=== PATIENT | male | born 1945 | race Caucasian/White ===

== ENCOUNTER → 2020-04-21 10:00 | Outpatient (BNVA) | payer MEDICARE, SELFPAY | PROVIDERS: Family Provider Internal Medicine; PCP Internal Medicine; Visit Provider Urology | DX: R97.20 Elevated prostate specific antigen [PSA] (principal); R31.0 Gross hematuria; N40.1 Benign prostatic hyperplasia with lower urinary tract symptoms | CPT/HCPCS: 81001; 84153 ==

== ENCOUNTER → 2020-11-02 08:36 | Outpatient (BNVA) | payer MEDICARE, SELFPAY | PROVIDERS: Family Provider Internal Medicine; PCP Internal Medicine; Visit Provider Urology | DX: N40.1 Benign prostatic hyperplasia with lower urinary tract symptoms (principal); R97.20 Elevated prostate specific antigen [PSA]; N41.1 Chronic prostatitis | CPT/HCPCS: 81003; 84153 ==

== ENCOUNTER 2022-10-26 11:26 | Outpatient (CLI) | payer MEDICARE, SELFPAY | END 2022-10-26 11:27 | disposition home or self-care (01) | PROVIDERS: PCP Internal Medicine; Visit Provider Urology | DX: R97.20 Elevated prostate specific antigen [PSA] (principal) | CPT/HCPCS: 84153 ==

== ENCOUNTER → 2022-10-31 13:44 | Outpatient (BNVA) | payer MEDICARE, SELFPAY | PROVIDERS: PCP Internal Medicine; Visit Provider Internal Medicine Cardiovascular Disease | DX: I48.92 Unspecified atrial flutter (principal); I10 Essential (primary) hypertension; E78.2 Mixed hyperlipidemia; E03.9 Hypothyroidism, unspecified; Z87.891 Personal history of nicotine dependence | CPT/HCPCS: 99214; Q3014 ==

== ENCOUNTER → 2022-11-02 07:56 | Outpatient (BNVA) | payer MEDICARE, SELFPAY | PROVIDERS: PCP Internal Medicine; Visit Provider Urology | DX: R97.20 Elevated prostate specific antigen [PSA] (principal); N40.1 Benign prostatic hyperplasia with lower urinary tract symptoms; N41.1 Chronic prostatitis | CPT/HCPCS: 51798; 81003; 99213 ==

== ENCOUNTER → 2023-11-26 11:39 | Outpatient (BNVA) | payer MEDICARE, SELFPAY | PROVIDERS: PCP Internal Medicine; Visit Provider Internal Medicine Cardiovascular Disease | DX: I10 Essential (primary) hypertension (principal); I48.92 Unspecified atrial flutter; Z79.01 Long term (current) use of anticoagulants; E78.2 Mixed hyperlipidemia; Z87.891 Personal history of nicotine dependence | CPT/HCPCS: 99213 ==

== ENCOUNTER 2024-02-08 18:25 | Emergency (ER) | payer MEDICARE, SELFPAY ==
[2024-02-08] VITALS (10 sets, daily range): BP systolic 160–188; BP diastolic 91–108; PULSE 88–107; RESP 12–19; TEMP 36.7; O2SAT 95–99
--- NOTE | 2024-02-08 18:34 | ECG_ITS ---
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 Measurements Intervals [place] Rate: 102 P: 44 MT: 180 QRS: 37 QRSD: 81 T: 47 QT: 324 QTc: 423 Interpretive Statements SINUS TACHYCARDIA POSSIBLE LEFT ATRIAL ENLARGEMENT [-0.1mV P-WAVE IN V1/V2] MINIMAL ST DEPRESSION [0.025+ mV ST DEPRESSION] ABNORMAL RHYTHM ECG INTERPRETATION BASED ON A DEFAULT AGE OF 40 YEARS Compared to ECG 07/24/2019 23:50:15 ST (T wave) deviation now present Sinus rhythm no longer present Electronically Signed On 02-09-2024 19:27:25 CDT by Janett Peñaloza M.D. [id number]
--- NOTE | 2024-02-08 18:58 | XRR_ITS ---
PROCEDURE INFORMATION: Exam: XR Chest Exam date and time: 02/08/2024 7:00 PM Age: 78 years old Clinical indication: Patient HX: Chest pain; Hypertension TECHNIQUE: Imaging protocol: Radiologic exam of the chest. Views: 1 view. COMPARISON: CR XR chest 1V [id number] 07/24/2019 10:53 PM FINDINGS: Lungs: No focal consolidation. Pleural spaces: No evidence of pneumothorax. No evidence of pleural effusion. Heart/Mediastinum: Cardiomediastinal silhouette is within normal limits. Bones/joints: No evidence of acute osseous abnormality. XR/XR chest 1V portable [id number] IMPRESSION: 1. No acute cardiopulmonary abnormality.
--- NOTE | 2024-02-08 19:10 | ED_ITS ---
HPI - Chest Pain 2 General: Chief Complaint: Chest Pain Stated Complaint: High BP Time Seen by Provider: 02/08/24 18:58 History of Present Illness: Patient presents to the ER with intermittent chest pain throughout the day. Patient said when he went to lean over and been back up he was reported he was dizzy. Patient says not felt right all day. He has a history of a flutter not had an episode in 2 years. He does take Eliquis and metoprolol. Upon arrival patient's blood pressure was 183/99 with a heart rate of 102. Patient is not actively having chest pain at this time. Review of Systems 2 General: Reports: 10 or more systems reviewed and unremarkable except in HPI and below PFSH ED 2 PFSH: Medical History Anticoagulation adequate with anticoagulant therapy Prostatitis BPH loc w urin obs/LUTS Elevated PSA Gross hematuria Hyperlipidemia BPH (benign prostatic hyperplasia) Basal cell carcinoma Atrial flutter Hypothyroidism Calculus of kidney Hypertension Surgical History H/O: knee surgery LEFT History of cholecystectomy H/O parathyroidectomy Family History Father , AT AGE 79 FH: CABG (coronary artery bypass surgery) Brother FH: CABG (coronary artery bypass surgery) Mother , AT AGE 96 No problems noted. Other CAD (coronary artery disease) Valvular heart disease Social History Smoking and tobacco/nicotine status: former use of tobacco/nicotine Alcohol intake: never Substance/Drug Use: never Marital status: Current occupational status: retired Physical Exam 2 Const: COMMON NORMALS: no acute distress, average body habitus, patient oriented x3, no limitations, healthy appearing, alert and well nourished HENMT: COMMON NORMALS: normocephalic, atraumatic, hearing grossly normal bilaterally, external ears normal, Normal external nose present, moist oral mucous membranes and oropharynx normal HEAD & SCALP: normocephalic and atraumatic NOSE: Normal external nose present EXTERNAL EAR: Yes external ears normal Neck/C-Spine: COMMON NORMALS: no JVD Chest: COMMONS NORMALS: normal inspection of the chest and normal palpation of entire chest wall Resp: COMMON NORMALS: normal respiratory effort, No retractions, No use of accessory muscles and clear to auscultation bilaterally AUSCULTATION: clear to auscultation bilaterally Cardio: COMMON NORMALS: no JVD, regular rate, regular rhythm, S1 normal heart sound present, S2 normal heart sound present, No gallops present (Cardio), No clicks present (Cardio), No murmurs present (Cardio) and No rub (Cardio) R ATE: regular rate RHYTHM: regular rhythm HEART SOUNDS: S1 normal heart sound present and S2 normal heart sound present GI: COMMON NORMALS: Normal to inspection, nondistended, normoactive bowel sounds present, Soft to palpation, non-tender, No hepatosplenomegaly present and no masses PALPATION: Yes Soft to palpation and Yes No hepatosplenomegaly present : COMMON NORMALS: Yes no CVA tenderness BLADDER/KIDNEY EXAM: Yes no CVA tenderness Back/Pelvis: COMMON NORMALS: no CVA tenderness Neuro: COMMON NORMALS: patient oriented x3 SENSORIUM/ORIENTATION: Yes alert Course 2 Vital Signs: Vital signs: Vital Signs Temperature 98.0 F 02/08/24 18:30 Pulse Rate 107 H 02/08/24 23:00 Respiratory Rate 14 02/08/24 23:00 Blood Pressure 181/94 02/08/24 23:00 Pulse Oximetry 98 02/08/24 23:00 Oxygen Delivery Me thod Room Air 02/08/24 18:30 MDM - Chest Pain Medical Decision Making Patient had a cardiac workup in normal chest pain type fashion with serial lab work, serial EKGs, serial enzymes and chest x-ray, all of which was essentially benign. Initial troponin was 15, 2-hour troponin was 17 for delta of approximately 2. Patient was given 10 mg of hydralazine for elevated blood pressure which improved slightly. Patient be discharged home to follow-up with his PCP for further evaluation and treatment. Lab Data 02/08/24 19:08 02/08/24 19:08 Radiology Impressions Chest X-Ray 02/08/24 18:58 IMPRESSION: 1. No acute cardiopulmonary abnormality. Laboratory Results WBC 7.46 10^3/uL (3.29-11.43) 02/08/24 19:08 RBC 5.43 10^6/uL (3.85-5.65) 02/08/24 19:08 Hgb 17.00 g/dL (11.27-16.99) H 02/08/24 19:08 Hct 48.6 % (37-53) 02/08/24 19:08 MCV 89.5 fl (82-101) 02/08/24 19:08 MCH 31.3 pg (27-33) 02/08/24 19:08 MCHC 35.0 g/dL (30-55) 02/08/24 19:08 RDW 12.0 % (12.1-15.1) L 02/08/24 19:08 Plt Count 194 10^3/cmm (157-399) 02/08/24 19:08 MPV 10.5 fL (7.4-10.4) H 02/08/24 19:08 Neut % (Auto) 69.7 % 02/08/24 19:08 Lymph % (Auto) 23.1 % 02/08/24 19:08 [place] % (Auto) 3.9 % 02/08/24 19:08 Eos % (Auto) 1.9 % 02/08/24 19:08 Baso % (Auto) 1.1 % 02/08/24 19:08 Neut # (Auto) 5.21 10^3/uL (1.8-7.7) 02/08/24 19:08 Lymph # (Auto) 1.7 10^3/uL (0.8-4.8) 02/08/24 19:08 [place] # (Auto) 0.3 10^3/uL (0.2-0.9) 02/08/24 19:08 Eos # (Auto) 0.1 10^3/uL (0.0-0.8) 02/08/24 19:08 Baso # (Auto) 0.1 10^3/uL (0.0-0.1) 02/08/24 19:08 Nucleated RBC % (auto) 0 % 02/08/24 19:08 Nucleated RBCs # 0.0 /100WBC 02/08/24 19:08 Sodium 139 mmol/L (136-145) 02/08/24 19:08 Potassium 3.8 mmol/L (3.5-5.1) 02/08/24 19:08 Chloride 103 mmol/L (98-107) 02/08/24 19:08 Carbon Dioxide 24 mmol/L (22-29) 02/08/24 19:08 Anion Gap 15.8 (5-19) 02/08/24 19:08 BUN 19 mg/dL (8-23) 02/08/24 19:08 Creatinine 1.2 mg/dL (0.7-1.2) 02/08/24 19:08 GFR Calculation Not Reportable 02/08/24 19:08 Glucose 179 mg/dL (65-115) H 02/08/24 19:08 Calculated Osmolality 295 mOsm/kg (285-295) 02/08/24 19:08 Calcium 8.7 mg/dL (8.5-10.5) 02/08/24 19:08 Total Bilirubin 0.6 mg/dL (0.15-1.2) 02/08/24 19:08 AST 16 U/L (0-40) 02/08/24 19:08 ALT 14 U/L (0-41) 02/08/24 19:08 Alkaline Phosphatase 94 U/L (40-130) 02/08/24 19:08 Troponin T Baseline 15 ng/L (0-15) 02/08/24 19:08 Troponin T 120 Minute 17.09 ng/L (0-15) H 02/08/24 21:08 Delta Troponin T 2.09 ABS# (0-10) 02/08/24 21:08 Total Protein 6.8 g/dL (6.6-8.7) 02/08/24 19:08 Albumin 4.6 g/dL (3.5-5.2) 02/08/24 19:08 Globulin 2.2 g/dL (1.3-4.6) 02/08/24 19:08 All radiology interpretation(s) finalized by discharge Discharge Plan Discharge Patient Disposition: Home Clinical Impression: Chest pain Hypertension Qualifiers: Hypertension type: essential hypertension Qualified Code(s): I10 - Essential (primary) hypertension Condition: Stable Prescriptions: No Action lisinopril 20 mg tablet 20 mg PO QDAY mirtazapine 15 mg tablet 15 mg PO QDAY pravastatin 20 mg tablet 20 mg PO QDAY levothyroxine [Synthroid] 50 mcg tablet 50 mcg PO QDAY tamsulosin 0.4 mg capsule See Rx Instructions .ROUTE .COMPLEX Qty: 90 3RF Dose Instruction: TAKE 1 CAPSULE BY MOUTH EVERY DAY Rx Instructions: TAKE 1 CAPSULE BY MOUTH EVERY DAY Eliquis 5 mg tablet 5 mg PO BID Qty: 180 3RF Discharge Orders: Discharge ED (Routine); Ordered 02/08/24 Ordered By: Oliver Hayes Referrals: Lauryn Sheriff MD [Primary Care Provider] - 1 week Patient Instructions: Chest Pain (ED), Hypertension (ED) Activity Restrictions/Additional Instructions: Your chest pain workup included chest x-ray, labs, EKGs all come back benign for acute cardiac causes of chest pain. It is felt that your pain is noncardiac in nature. Please follow-up with your family practice physician for further evaluation testing as needed. 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
[2024-02-08 19:19] LABS: Basophils # 0.1 10^3/uL (0.0-0.1); Basophils % 1.1 %; Eosinophils # 0.1 10^3/uL (0.0-0.8); Eosinophils % 1.9 %; Hematocrit 48.6 % (37-53); Lymphocytes # 1.7 10^3/uL (0.8-4.8); Lymphocytes % 23.1 %; Mean Corpuscular Hemoglobin 31.3 pg (27-33); Mean Corpuscular Volume 89.5 fl (82-101); Mean Platelet Volume 10.5 fL (7.4-10.4); Monocytes # 0.3 10^3/uL (0.2-0.9); Monocytes % 3.9 %; Neutrophils # 5.21 10^3/uL (1.8-7.7); Neutrophils % 69.7 %; Nucleated Red Blood Cells % 0 %; Platelet Count 194 10^3/cmm (157-399); Red Blood Count 5.43 10^6/uL (3.85-5.65); White Blood Count 7.46 10^3/uL (3.29-11.43)
[2024-02-08 19:40] LABS: Troponin(5th) Baseline 15 ng/L (0-15)
[2024-02-08 19:42] LABS: Alanine Aminotransferase 14 U/L (0-41); Albumin Level 4.6 g/dL (3.5-5.2); Alkaline Phosphatase 94 U/L (40-130); Anion Gap 15.8 (5-19); Aspartate Amino Transferase 16 U/L (0-40); Blood Urea Nitrogen 19 mg/dL (8-23); Calcium 8.7 mg/dL (8.5-10.5); Carbon Dioxide 24 mmol/L (22-29); Chloride 103 mmol/L (98-107); Creatinine Clr Calc Pharmacy 46.1397; Globulin 2.2 g/dL (1.3-4.6); Glucose 179 mg/dL (65-115); Osmolality Calculated 295 mOsm/kg (285-295); Potassium 3.8 mmol/L (3.5-5.1); Sodium 139 mmol/L (136-145); Total Bilirubin 0.6 mg/dL (0.15-1.2); Total Protein 6.8 g/dL (6.6-8.7)
--- NOTE | 2024-02-08 20:58 | ECG_ITS ---
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 Measurements Intervals [place] Rate: 91 P: 40 PA: 165 QRS: 40 QRSD: 86 T: 40 QT: 332 QTc: 410 Interpretive Statements SINUS RHYTHM Compared to ECG 02/08/2024 18:34:21 Sinus tachycardia no longer present ST (T wave) deviation no longer present Electronically Signed On 02-09-2024 19:57:54 CDT by Janett Peñaloza M.D. [id number]
[2024-02-08] MEDS: hyDRALAzine 20 mg/mL INJ 1 mL 10 MG IVP (22:12)
[2024-02-08 22:20] LABS: Troponin 5 2HR 17.09 ng/L (0-15); Troponin 5 2HR Delta 2.09 ABS# (0-10)
[2024-02-09 00:02] VITALS: BP 165/88; PULSE 103; RESP 18; O2SAT 99
== END 2024-02-09 00:04 | disposition home or self-care (01) ==
PROVIDERS: Emergency Provider Emergency Medicine; PCP Internal Medicine
DX: R07.9 Chest pain, unspecified (principal); I10 Essential (primary) hypertension; Z79.01 Long term (current) use of anticoagulants; Z87.891 Personal history of nicotine dependence; E78.5 Hyperlipidemia, unspecified
CPT/HCPCS: 36415; 71045; 80053; 84484; 85025; 93005; 96374; 99285; J0360

== ENCOUNTER 2024-02-11 18:23 | Emergency (ER) | payer MEDICARE, SELFPAY ==
[2024-02-11] VITALS (9 sets, daily range): BP systolic 145–206; BP diastolic 78–103; PULSE 88–106; RESP 14–18; TEMP 36.8; O2SAT 96–99
--- NOTE | 2024-02-11 18:45 | W.ED.GENADLT ---
HPI - General Adult General: Chief complaint: General Medical Stated complaint: High BP Time Seen by Provider: 02/11/24 18:40 History of Present Illness: 78-year-old male presents emergency department with complaints of increased blood pressure. He states he was seen in the emergency department 3 days ago for the same complaint. Patient states he normally takes lisinopril and his blood pressure has been well-controlled. He states that he does have atrial fibrillation and takes apixaban for his irregular heart as well as Synthroid for his hypothyroidism. Patient states that he is not having difficulty with his vision or chest pain or shortness of breath. He states that he has just felt a little strange and off today . Associated symptoms: Deny headache(s) Review of Systems General: Reports: 10 or more systems reviewed and unremarkable except in HPI and below Neuro: Reports: dizziness; Denies: headache(s), numbness in extremities, weakness in extremities, difficulty walking or Slurred speech present PFSH ED PFSH: Medical History Anticoagulation adequate with anticoagulant therapy Prostatitis BPH loc w urin obs/LUTS Elevated PSA Gross hematuria Hyperlipidemia BPH (benign prostatic hyperplasia) Basal cell carcinoma Atrial flutter Hypothyroidism Calculus of kidney Hypertension Surgical History H/O: knee surgery LEFT History of cholecystectomy H/O parathyroidectomy Family History Father , AT AGE 79 FH: CABG (coronary artery bypass surgery) Brother FH: CABG (coronary artery bypass surgery) Mother , AT AGE 96 No problems noted. Other CAD (coronary artery disease) Valvular heart disease Social History Smoking and tobacco/nicotine status: former use of tobacco/nicotine Alcohol intake: never Substance/Drug Use: never Marital status: Current occupational status: retired Physical Exam Narrative: EXAM NARRATIVE: Constitutional: the patient appears well nourished and with normal development. Vital signs reviewed as documented. HENMT: Normocephalic, atraumatic. External ears normal appearance without drainage. Nose without drainage, normal appearance. Mucus membranes moist. Neck is supple, No jugular venous distension, trachea is midline, no appreciable carotid bruits. No lymphadenopathy. No meningeal signs. Flexion, extension and lateral rotation is without pain. Eyes: Pupils are equal, round, reactive to light and accommodation. No scleral icterus. Extra-ocular movement are intact. Thorax is symmetrical and with equal rise and fall with respirations. Resp: Lungs are clear to auscultation. No wheezes, rales, crackles or ronchi at present. Cardio: Regular rate and rhythm. Positive S1, S2. No appreciable murmurs, rubs or gallops. GI: Abdominal exam reveals normal bowel sounds to all quadrants. No organomegaly. No obvious palpable masses noted. No hepatomegally appreciated. Soft, non-tender to palpation. Extremity: Extremities are non-edematous and both femoral and pedal pulses are 2+ and equal bilaterally. Moves all extremities well, sensation in all extremities. Neuro: Alert and oriented x4, person, place, time and situation. Cranial nerves II through XII are grossly intact, there is no focal neurological deficits that I can appreciate at present. Sensation intact to all extremities. 2-point discrimination intact. Light touch intact to all extremities. Motor strength in the upper and lower extremities are equal and bilateral 5/5. Psych: Cooperative, calm, normal thought process, appropriate judgment. Skin: No lesions, rashes. No gross abnormalities noted. Back: Symmetrical, no obvious deformity, No CVA tenderness Course Vital Signs: Vital signs: Vital Signs Temperature 98.2 F 02/11/24 18:38 Pulse Rate 90 02/11/24 20:57 Respiratory Rate 16 02/11/24 20:57 Blood Pressure 168/78 02/11/24 20:57 Pulse Oximetry 96 02/11/24 20:57 Oxygen Delivery Me thod Room Air 02/11/24 19:54 MDM - General Adult Medical Decision Making Physical exam completed document I did obtain a CBC and CMP as well as cardiac enzymes I did provide the patient clonidine and hydralazine and his blood pressure improved significantly. The patient states he has taken metoprolol in the past but has not taken that for many years because he was advised to take it intermittently if he felt his heart rate going fast. After reevaluation the patient's blood pressure has significantly improved. I had an extensive discussion with the patient regarding supportive care treatment and will provide him discharge medications and recommended follow-up with his PCP. Patient did ambulate from the emergency department without any difficulty. Differential Diagnosis Uncontrolled hypertension, electrolyte abnormality, Medical Records I reviewed the patient's medical records. Lab Data I reviewed the patient's lab results. 02/11/24 18:50 02/11/24 18:50 Laboratory Results WBC 7.07 10^3/uL (3.29-11.43) 02/11/24 18:50 RBC 5.58 10^6/uL (3.85-5.65) 02/11/24 18:50 Hgb 17.60 g/dL (11.27-16.99) H 02/11/24 18:50 Hct 49.7 % (37-53) 02/11/24 18:50 MCV 89.1 fl (82-101) 02/11/24 18:50 MCH 31.5 pg (27-33) 02/11/24 18:50 MCHC 35.4 g/dL (30-55) 02/11/24 18:50 RDW 11.9 % (12.1-15.1) L 02/11/24 18:50 Plt Count 215 10^3/cmm (157-399) 02/11/24 18:50 MPV 10.4 fL (7.4-10.4) 02/11/24 18:50 Neut % (Auto) 69.7 % 02/11/24 18:50 Lymph % (Auto) 22.2 % 02/11/24 18:50 [place] % (Auto) 5.9 % 02/11/24 18:50 Eos % (Auto) 1.1 % 02/11/24 18:50 Baso % (Auto) 0.8 % 02/11/24 18:50 Neut # (Auto) 4.92 10^3/uL (1.8-7.7) 02/11/24 18:50 Lymph # (Auto) 1.6 10^3/uL (0.8-4.8) 02/11/24 18:50 [place] # (Auto) 0.4 10^3/uL (0.2-0.9) 02/11/24 18:50 Eos # (Auto) 0.1 10^3/uL (0.0-0.8) 02/11/24 18:50 Baso # (Auto) 0.1 10^3/uL (0.0-0.1) 02/11/24 18:50 Nucleated RBC % (auto) 0 % 02/11/24 18:50 Nucleated RBCs # 0.0 /100WBC 02/11/24 18:50 Sodium 139 mmol/L (136-145) 02/11/24 18:50 Potassium 4.0 mmol/L (3.5-5.1) 02/11/24 18:50 Chloride 104 mmol/L (98-107) 02/11/24 18:50 Carbon Dioxide 25 mmol/L (22-29) 02/11/24 18:50 Anion Gap 14.0 (5-19) 02/11/24 18:50 BUN 17 mg/dL (8-23) 02/11/24 18:50 Creatinine 1.3 mg/dL (0.7-1.2) H 02/11/24 18:50 GFR Calculation Not Reportable 02/11/24 18:50 Glucose 142 mg/dL (65-115) H 02/11/24 18:50 Calculated Osmolality 292 mOsm/kg (285-295) 02/11/24 18:50 Calcium 8.8 mg/dL (8.5-10.5) 02/11/24 18:50 Total Bilirubin 0.8 mg/dL (0.15-1.2) 02/11/24 18:50 AST 17 U/L (0-40) 02/11/24 18:50 ALT 14 U/L (0-41) 02/11/24 18:50 Alkaline Phosphatase 92 U/L (40-130) 02/11/24 18:50 Total Protein 7.3 g/dL (6.6-8.7) 02/11/24 18:50 Albumin 4.6 g/dL (3.5-5.2) 02/11/24 18:50 Globulin 2.7 g/dL (1.3-4.6) 02/11/24 18:50 No radiology studies performed this visit EKG Data EKG 1: Interpretation: Twelve-lead EKG obtained at 1845 and reviewed at 184 demonstrates sinus rhythm, [place] interval 166, QRS duration 81, QT 360 QTc 401 at present there is no ST elevation or depression to demonstrate acute ischemia or infarction. Discharge Plan Discharge Patient Disposition: Home Clinical Impression: Hypertension, uncontrolled Condition: Stable Prescriptions: New metoprolol tartrate 25 mg tablet 12.5 mg PO BID Qty: 30 1RF No Action lisinopril 20 mg tablet 20 mg PO QDAY mirtazapine 15 mg tablet 15 mg PO QDAY pravastatin 20 mg tablet 20 mg PO QDAY levothyroxine [Synthroid] 50 mcg tablet 50 mcg PO QDAY tamsulosin 0.4 mg capsule See Rx Instructions .ROUTE .COMPLEX Qty: 90 3RF Dose Instruction: TAKE 1 CAPSULE BY MOUTH EVERY DAY Rx Instructions: TAKE 1 CAPSULE BY MOUTH EVERY DAY Eliquis 5 mg tablet 5 mg PO BID Qty: 180 3RF Discharge Orders: Discharge ED (Routine); Ordered 02/11/24 Ordered By: Darrin Patterson Referrals: Lauryn Sheriff MD [Primary Care Provider] - Discharge Diet: Low Salt Discharge Activity: Resume usual activity Patient Instructions: Opioid Safety, Pain Management Activity Restrictions/Additional Instructions: Activity Restrictions/Additional Instructions: Thank you for choosing [facility] for your healthcare needs today. Please realize that you were seen in the Emergency Department and that we are providing you with an emergency medical screening exam and this may not be a complete and all inclusive of all the testing and or medical work-up that you may need to determine your ailment or severity of your illness. It is very important that you follow-up as instructed with your Primary care provider or Specialist for additional evaluation and to discuss your medical treatment plan. You may return to the Emergency Department should you have concerns or if your condition changes or worsens in any way. 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
[2024-02-11 19:06] LABS: Basophils # 0.1 10^3/uL (0.0-0.1); Basophils % 0.8 %; Eosinophils # 0.1 10^3/uL (0.0-0.8); Eosinophils % 1.1 %; Hematocrit 49.7 % (37-53); Lymphocytes # 1.6 10^3/uL (0.8-4.8); Lymphocytes % 22.2 %; Mean Corpuscular HGB Conc 35.4 g/dL (30-55); Mean Corpuscular Hemoglobin 31.5 pg (27-33); Mean Corpuscular Volume 89.1 fl (82-101); Mean Platelet Volume 10.4 fL (7.4-10.4); Monocytes # 0.4 10^3/uL (0.2-0.9); Monocytes % 5.9 %; Neutrophils # 4.92 10^3/uL (1.8-7.7); Neutrophils % 69.7 %; Nucleated Red Blood Cells % 0 %; Platelet Count 215 10^3/cmm (157-399); Red Blood Count 5.58 10^6/uL (3.85-5.65); Red Cell Distribution Width 11.9 % (12.1-15.1); White Blood Count 7.07 10^3/uL (3.29-11.43)
[2024-02-11] MEDS: cloNIDine 0.1 mg Tablet 0.100000000000000006 MG PO (19:08)
[2024-02-11] MEDS: hyDRALAzine 20 mg/mL INJ 1 mL IVP (19:08)
[2024-02-11 19:15] LABS: Alanine Aminotransferase 14 U/L (0-41); Albumin Level 4.6 g/dL (3.5-5.2); Alkaline Phosphatase 92 U/L (40-130); Aspartate Amino Transferase 17 U/L (0-40); Blood Urea Nitrogen 17 mg/dL (8-23); Calcium 8.8 mg/dL (8.5-10.5); Carbon Dioxide 25 mmol/L (22-29); Chloride 104 mmol/L (98-107); Creatinine Clr Calc Pharmacy 42.5905; Globulin 2.7 g/dL (1.3-4.6); Glucose 142 mg/dL (65-115); Osmolality Calculated 292 mOsm/kg (285-295); Sodium 139 mmol/L (136-145); Total Bilirubin 0.8 mg/dL (0.15-1.2); Total Protein 7.3 g/dL (6.6-8.7)
--- NOTE | 2024-02-11 19:32 | ECG_ITS ---
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 Measurements Intervals [place] Rate: 104 P: 46 [place]: 167 QRS: 50 QRSD: 80 T: 49 QT: 332 QTc: 438 Interpretive Statements SINUS TACHYCARDIA NONSPECIFIC ST & T-WAVE ABNORMALITY ABNORMAL RHYTHM ECG Compared to ECG 02/08/2024 21:15:41 T-wave abnormality now present Sinus rhythm no longer present Electronically Signed On 02-11-2024 22:52:04 CDT by Janett Peñaloza M.D. [id number]
== END 2024-02-11 20:57 | disposition home or self-care (01) ==
PROVIDERS: Emergency Provider Internal Medicine; PCP Internal Medicine
DX: I10 Essential (primary) hypertension (principal); Z79.01 Long term (current) use of anticoagulants; Z87.891 Personal history of nicotine dependence; E78.5 Hyperlipidemia, unspecified
CPT/HCPCS: 80053; 85025; 93005; 96374; 99284; J0360

== ENCOUNTER 2024-04-28 17:09 | Observation (INO) | payer MEDICARE, SELFPAY ==
[2024-04-28] VITALS (10 sets, daily range): BP systolic 111–216; BP diastolic 62–112; PULSE 65–93; RESP 14–22; TEMP 36.6–37; O2SAT 94–99; BMI 21.2
[2024-04-28 17:57] LABS: Basophils # 0.1 10^3/uL (0.0-0.1); Eosinophils # 0.1 10^3/uL (0.0-0.8); Eosinophils % 1.1 %; Hematocrit 53.4 % (37-53); Lymphocytes # 1.4 10^3/uL (0.8-4.8); Lymphocytes % 19.7 %; Mean Corpuscular HGB Conc 34.6 g/dL (30-55); Mean Corpuscular Hemoglobin 30.5 pg (27-33); Mean Corpuscular Volume 88.1 fl (82-101); Mean Platelet Volume 10.9 fL (7.4-10.4); Monocytes # 0.5 10^3/uL (0.2-0.9); Monocytes % 6.3 %; Neutrophils # 5.14 10^3/uL (1.8-7.7); Neutrophils % 71.5 %; Nucleated Red Blood Cells % 0 %; Platelet Count 187 10^3/cmm (157-399); Red Blood Count 6.06 10^6/uL (3.85-5.65); Red Cell Distribution Width 12.2 % (12.1-15.1); White Blood Count 7.19 10^3/uL (3.29-11.43)
[2024-04-28 18:06] LABS: Alanine Aminotransferase 10 U/L (0-41); Albumin Level 4.6 g/dL (3.5-5.2); Alkaline Phosphatase 89 U/L (40-130); Aspartate Amino Transferase 20 U/L (0-40); Blood Urea Nitrogen 16 mg/dL (8-23); Calcium 8.9 mg/dL (8.5-10.5); Carbon Dioxide 24 mmol/L (22-29); Chloride 101 mmol/L (98-107); Creatinine Clr Calc Pharmacy 46.1397; Globulin 2.9 g/dL (1.3-4.6); Glucose 107 mg/dL (65-115); Osmolality Calculated 286 mOsm/kg (285-295); Sodium 137 mmol/L (136-145); Total Protein 7.5 g/dL (6.6-8.7)
[2024-04-28 18:47] LABS: Anion Gap 16.1 (5-19); Potassium 4.1 mmol/L (3.5-5.1)
--- NOTE | 2024-04-28 19:36 | ECG_ITS ---
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 Measurements Intervals [place] Rate: 80 P: 43 PA: 168 QRS: 55 QRSD: 80 T: 39 QT: 367 QTc: 423 Interpretive Statements SINUS RHYTHM WITH OCCASIONAL ECTOPIC PREMATURE COMPLEXES POSSIBLE LEFT ATRIAL ENLARGEMENT [-0.1mV P-WAVE IN V1/V2] MODERATE ST DEPRESSION [0.05+ mV ST DEPRESSION] Compared to ECG 02/11/2024 19:32:40 ST (T wave) deviation now present Sinus tachycardia no longer present T-wave abnormality no longer present Electronically Signed On 04-28-2024 23:21:31 CDT by Kartik Rm M.D. [id number]
--- NOTE | 2024-04-28 19:51 | ED_ITS ---
HPI - General Adult 2 General: Chief complaint: General Medical Stated complaint: High blood pressure Time Seen by Provider: 04/28/24 19:25 History of Present Illness: Patient presents to the ER with worsening blood pressure. Patient says he his blood pressure started to get high back about 2 months ago he was seen in the ER a couple times then followed up with family practice physician and was eventually started on lisinopril and metoprolol and has been on these for about 6 weeks. They usually control his blood pressure significantly better however today he noticed he was up significantly and he started getting a bit lightheaded. So he came to the ER to be evaluated. Patient has no other complaints at this time. Review of Systems 2 General: Reports: 10 or more systems reviewed and unremarkable except in HPI and below PFSH ED 2 PFSH: Medical History Anticoagulation adequate with anticoagulant therapy Prostatitis BPH loc w urin obs/LUTS Elevated PSA Gross hematuria Hyperlipidemia BPH (benign prostatic hyperplasia) Basal cell carcinoma Atrial flutter Hypothyroidism Calculus of kidney Hypertension Surgical History H/O: knee surgery LEFT History of cholecystectomy H/O parathyroidectomy Family History Father , AT AGE 79 FH: CABG (coronary artery bypass surgery) Brother FH: CABG (coronary artery bypass surgery) Mother , AT AGE 96 No problems noted. Other CAD (coronary artery disease) Valvular heart disease Social History Smoking and tobacco/nicotine status: former use of tobacco/nicotine Alcohol intake: never Substance/Drug Use: never Marital status: Current occupational status: retired Physical Exam 2 Const: COMMON NORMALS: no acute distress, average body habitus, patient oriented x3, no limitations, healthy appearing, alert and well nourished HENMT: COMMON NORMALS: normocephalic, atraumatic, hearing grossly normal bilaterally, external ears normal, Normal external nose present and moist oral mucous membranes HEAD & SCALP: normocephalic and atraumatic NOSE: Normal external nose present EXTERNAL EAR: Yes external ears normal Eye: COMMON NORMALS: Equal, round and reactive pupils present, EOMs intact bilaterally, conjunctivae normal and no scleral icterus CONJUNCTIVA: Yes conjunctivae normal PUPIL: Yes Equal, round and reactive pupils present Neck/C-Spine: COMMON NORMALS: no JVD Chest: COMMONS NORMALS: normal inspection of the chest and normal palpation of entire chest wall Resp: COMMON NORMALS: normal respiratory effort, No retractions, No use of accessory muscles and clear to auscultation bilaterally AUSCULTATION: clear to auscultation bilaterally Cardio: COMMON NORMALS: no JVD, regular rate, regular rhythm, S1 normal heart sound present, S2 normal heart sound present, No clicks present (Cardio) and No rub (Cardio); negative for No murmurs present (Cardio) (Thoracic systolic ejection murmur) RATE: regular rate RHYTHM: regular rhythm HEART SOUNDS: S1 normal heart sound present and S2 normal heart sound present GI: COMMON NORMALS: Normal to inspection, nondistended, normoactive bowel sounds present, Soft to palpation, non-tender, No hepatosplenomegaly present and no masses PALPATION: Yes Soft to palpation and Yes No hepatosplenomegaly present Neuro: COMMON NORMALS: patient oriented x3 SENSORIUM/ORIENTATION: Yes alert Course 2 Vital Signs: Vital signs: Vital Signs Temperature 97.8 F 04/28/24 20:00 Pulse Rate 79 04/29/24 03:00 Respiratory Rate 12 04/29/24 03:00 Blood Pressure 133/76 04/29/24 03:00 Pulse Oximetry 98 04/29/24 03:00 Oxygen Delivery Me thod Room Air 04/29/24 00:00 MDM - General Adult Medical Decision Making Patient presented to the ER with blood pressure of 216/100 with no other complaints other than mild dizziness, patient was given 20 mg of hydralazine IM and 0.2 mg clonidine p.o. will get lab work for troponin approximately 19, second troponin approximately 29.5, third troponin approximately 46 for delta of approximately 26. EKG showed some mild ST depression in in a few leads as well as inverted T waves, Dr. Peñaloza was consulted who said the patient could be having a type II RI and he would suggest admitting the patient for stress test. Dr. Hughes was consulted who agreed to place patient in observation CSU. Differential Diagnosis Hypertension, uncontrolled, dizziness, vertigo Medical Records I reviewed the patient's medical records. Lab Data I reviewed the patient's lab results. 04/28/24 17:42 04/28/24 17:42 Laboratory Results WBC 7.19 10^3/uL (3.29-11.43) 04/28/24 17:42 RBC 6.06 10^6/uL (3.85-5.65) H 04/28/24 17:42 Hgb 18.50 g/dL (11.27-16.99) H 04/28/24 17:42 Hct 53.4 % (37-53) H 04/28/24 17:42 MCV 88.1 fl (82-101) 04/28/24 17:42 MCH 30.5 pg (27-33) 04/28/24 17:42 MCHC 34.6 g/dL (30-55) 04/28/24 17:42 RDW 12.2 % (12.1-15.1) 04/28/24 17:42 Plt Count 187 10^3/cmm (157-399) 04/28/24 17:42 MPV 10.9 fL (7.4-10.4) H 04/28/24 17:42 Neut % (Auto) 71.5 % 04/28/24 17:42 Lymph % (Auto) 19.7 % 04/28/24 17:42 [place] % (Auto) 6.3 % 04/28/24 17:42 Eos % (Auto) 1.1 % 04/28/24 17:42 Baso % (Auto) 1.0 % 04/28/24 17:42 Neut # (Auto) 5.14 10^3/uL (1.8-7.7) 04/28/24 17:42 Lymph # (Auto) 1.4 10^3/uL (0.8-4.8) 04/28/24 17:42 [place] # (Auto) 0.5 10^3/uL (0.2-0.9) 04/28/24 17:42 Eos # (Auto) 0.1 10^3/uL (0.0-0.8) 04/28/24 17:42 Baso # (Auto) 0.1 10^3/uL (0.0-0.1) 04/28/24 17:42 Nucleated RBC % (auto) 0 % 04/28/24 17:42 Nucleated RBCs # 0.0 /100WBC 04/28/24 17:42 Sodium 137 mmol/L (136-145) 04/28/24 17:42 Potassium 4.1 mmol/L (3.5-5.1) 04/28/24 17:42 Chloride 101 mmol/L (98-107) 04/28/24 17:42 Carbon Dioxide 24 mmol/L (22-29) 04/28/24 17:42 Anion Gap 16.1 (5-19) 04/28/24 17:42 BUN 16 mg/dL (8-23) 04/28/24 17:42 Creatinine 1.2 mg/dL (0.7-1.2) 04/28/24 17:42 GFR Calculation Not Reportable 04/28/24 17:42 Glucose 107 mg/dL (65-115) 04/28/24 17:42 Calculated Osmolality 286 mOsm/kg (285-295) 04/28/24 17:42 Calcium 8.9 mg/dL (8.5-10.5) 04/28/24 17:42 Total Bilirubin 1.0 mg/dL (0.15-1.2) 04/28/24 17:42 AST 20 U/L (0-40) 04/28/24 17:42 ALT 10 U/L (0-41) 04/28/24 17:42 Alkaline Phosphatase 89 U/L (40-130) 04/28/24 17:42 Troponin T Baseline 19 ng/L (0-15) H 04/28/24 20:26 Troponin T 120 Minute 29.58 ng/L (0-15) H 04/28/24 22:39 Delta Troponin T 10.58 ABS# (0-10) H* 04/28/24 22:39 Troponin T Hi Sens 6Hr 45.78 ng/L (0-15) H 04/29/24 02:20 Troponin T Hi Sens 6Hr Delta 26.78 ng/L (0-12) H* 04/29/24 02:20 Total Protein 7.5 g/dL (6.6-8.7) 04/28/24 17:42 Albumin 4.6 g/dL (3.5-5.2) 04/28/24 17:42 Globulin 2.9 g/dL (1.3-4.6) 04/28/24 17:42 TSH 4.03 uIU/mL (0.27-4.20) 04/28/24 17:42 Urine Color Yellow (Yellow) 04/28/24 19:26 Urine Appearance Clear (CLEAR) 04/28/24 19:26 Urine pH 5 (5-7) 04/28/24 19:26 Ur Specific [place] 1.015 (1.005-1.030) 04/28/24 19:26 Urine Protein Neg (Negative) 04/28/24 19:26 Urine Glucose (UA) Norm (Normal) 04/28/24 19:26 Urine Ketones Negative (Negative) 04/28/24 19:26 Urine Blood 3+ (Negative) H 04/28/24 19:26 Urine Nitrate Negative (Negative) 04/28/24 19:26 Urine Bilirubin Neg (Negative) 04/28/24 19:26 Urine Urobilinogen Norm mg/dL (Negative) 04/28/24 19:26 Ur Leukocyte Esterase Negative (Negative) 04/28/24 19:26 Urine RBC 0-4 /hpf (0-2) H 04/28/24 19:26 Urine WBC 0-4 /hpf (0-5) H 04/28/24 19:26 Ur Squamous Epith Cells 0-4 /hpf (0-5) H 04/28/24 19:26 Amorphous Sediment Not Reportable 04/28/24 19:26 Urine Bacteria Trace /hpf (NONE) 04/28/24 19:26 All radiology interpretation(s) finalized by discharge EKG Data EKG 1: I personally reviewed and interpreted this EKG as follows: EKG interpretation date: 04/28/24 EKG interpretation time: 20:03 Interpretation: Ventricular rate 80 bpm, NM interval 168, QRS duration 80, QTc of 402, sinus rhythm occasional PVC EKG 2: I personally reviewed and interpreted this EKG as follows: EKG interpretation date: 04/28/24 EKG interpretation time: 22:55 Interpretation: Ventricular rate 87 bpm, NM interval 167, QRS duration 81, QTc of 438, sinus rhythm with frequent PVCs Discharge Plan Discharge Patient Disposition: Placed in Observation Clinical Impression: Hypertension, uncontrolled, Non-ST elevation RI (NSTEMI) Coding Level of Care Code ED Behavioral Modification Assistant for Woo Bonner
[2024-04-28] MEDS: hyDRALAzine 20 mg/mL INJ 1 mL IM (20:11)
[2024-04-28 20:14] LABS: Thyroid Stimulating Hormone 4.03 uIU/mL (0.27-4.20)
[2024-04-28 20:53] LABS: Add Urine Microscopic? YES; Bilirubin Urine Neg (Negative); Blood Urine 3+ (Negative); Glucose Urine UA Norm (Normal); Ketones Urine Negative (Negative); Leukocyte Esterase Urine Negative (Negative); Nitrate Urine Negative (Negative); Protein Urine Neg (Negative); Specific Gravity, Urine 1.015 (1.005-1.030); Urine Appearance Clear (CLEAR); Urine Color Yellow (Yellow); Urobilinogen Urine Norm (Negative); pH Urine 5 (5-7)
[2024-04-28 20:54] LABS: Add Urine Culture? No; Bacteria Urine TRACE /hpf; RBC Urine 0-4 /hpf (0-2); Squamous Epithelial Cell Urine 0-4 /hpf (0-5); WBC Urine 0-4 /hpf (0-5)
[2024-04-28 21:04] LABS: Troponin(5th) Baseline 19 ng/L (0-15)
[2024-04-28] MEDS: cloNIDine 0.1 mg Tablet 0.2 MG PO (21:31)
--- NOTE | 2024-04-28 22:55 | ECG_ITS ---
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 Measurements Intervals [place] Rate: 87 P: 34 MA: 167 QRS: 51 QRSD: 81 T: 45 QT: 394 QTc: 475 Interpretive Statements SINUS RHYTHM WITH FREQUENT ECTOPIC PREMATURE COMPLEXES POSSIBLE LEFT ATRIAL ENLARGEMENT [-0.1mV P-WAVE IN V1/V2] ABNORMAL RHYTHM ECG Compared to ECG 04/28/2024 20:03:55 ST (T wave) deviation no longer present Electronically Signed On 04-29-2024 21:34:19 CDT by Janett Peñaloza M.D. [id number] f
[2024-04-28 23:04] LABS: Troponin 5 2HR 29.58 ng/L (0-15)
[2024-04-28 23:14] LABS: Troponin 5 2HR Delta 10.58 ABS# (0-10)
[2024-04-29] VITALS (23 sets, daily range): BP systolic 86–164; BP diastolic 51–94; PULSE 58–84; RESP 12–29; O2SAT 95–98; BMI 21.6
[2024-04-29 02:43] LABS: Troponin 5 6HR 45.78 ng/L (0-15)
[2024-04-29 02:59] LABS: Troponin 5 6HR Delta 26.78 ng/L (0-12)
--- NOTE | 2024-04-29 03:00 | ECG_ITS ---
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 Measurements Intervals [place] Rate: 66 P: 46 SC: 170 QRS: 49 QRSD: 80 T: 31 QT: 426 QTc: 447 Interpretive Statements SINUS RHYTHM POSSIBLE LEFT ATRIAL ENLARGEMENT [-0.1mV P-WAVE IN V1/V2] MODERATE ST DEPRESSION [0.05+ mV ST DEPRESSION] Compared to ECG 04/28/2024 22:55:50 ST (T wave) deviation now present Electronically Signed On 04-29-2024 21:35:24 CDT by Janett Peñaloza M.D. [id number]
--- NOTE | 2024-04-29 04:08 | ECG_ITS ---
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 Interpretive Statements NAME OF STUDY: LEXISCAN SESTAMIBI STRESS TEST INDICATION: Elevated Troponin, PROCEDURE: At the baseline, the EKG revealed normal sinus rhythm with a normal ST Ts.. The baseline heart was 67 bpm with a blood pressue of 157/100 mm of Hg Lexiscan was infused over a period of 20 seconds. A total of 0.4 milligrams of Lexiscan was infused. The stress phase was continued for a total of 5 minutes. Heart rate at the end of the stress phase was 84 bpm with a blood pressure 146/81 mm of Hg. The EKG at the peak infusion revealed no significant changes. Sestamibi was injected 20 seconds after the Lexiscan infusion. Heart rate at the end of the recovery phase was 82 bpm with a blood pressure of 159/83 mm of Hg. CONCLUSION: 1. No significant EKG changes with the LexiScan infusion 2. No LexiScan induced chest pain or cardiac arrhythmia 3. Normal blood pressure and heart rate response 4. Sestamibi/sestamibi perfusion scan pending; see separate report. Electronically Signed On 05-01-2024 23:03:45 CDT by Janett Peñaloza M.D. [id number]
--- NOTE | 2024-04-29 04:08 | USCV_ITS ---
Frantz Bearden Age: 78 Gender: M : 1945 Exam Date: 04/29/2024 05:51 Ordering Phys: Makayla Hughes MD Technologist: BASILIO Exam Location: [facility] [place] Indication: ELEVATED TROPONIN BP: 105 / 66 HR: 75 Rhythm: Sinus Technical Quality: Adequate MEASUREMENTS (Male / Female) Normal Values 2D ECHO LV Diastolic Diameter PLAX 3.8 cm 4.2 - 5.9 / 3.9 - 5.3 cm IVS Diastolic Thickness 0.8 cm 0.6 - 1.0 / 0.6 - 0.9 cm IVS Systolic Thickness 1.6 cm LVPW Diastolic Thickness 1.5 cm 0.6 - 1.0 / 0.6 - 0.9 cm LVPW Systolic Thickness 2.0 cm LVOT Diameter 2.0 cm LV Ejection Fraction 2D Teich 67.8 % LV Ejection Fraction MOD 4C 62.8 % LV Ejection Fraction MOD 2C 66.3 % LV Ejection Fraction 2C AL 66.8 % LA Diameter 3.0 cm RA Systolic Volume 4C AL 23.6 ml RA Systolic Volume 4C MOD 22.6 ml LA Sys Volume AL 24.3 cm cubed LA Sys Volume Index AL 13.9 cm cubed/m squared Aorta at Sinotubular Diameter 2.8 cm M-MODE LA Ao Ratio MM 0.7 AV Cusp Separation MM 0.9 cm DOPPLER AV Peak Velocity 181.7 cm/s LVOT Peak Velocity 89.0 cm/s AV Area Cont Eq vti 1.6 cm squared AV Area Cont Eq pk 1.5 cm squared MV Peak Velocity 103.0 cm/s MV Area PHT 2.9 cm squared Mitral E to A Ratio 0.8 TR Peak Velocity 267.5 cm/s TR Peak Gradient 28.6 mmHg TR Mean Velocity 219.0 cm/s TR Mean Gradient 22.1 mmHg TR Velocity Time Integral 97.3 cm TV Peak E Velocity 45.0 cm/s Right Atrial Pressure 3.0 mmHg Pulmonary Artery Systolic Pressu 31.6 mmHg PV Peak Velocity 111.0 cm/s RV Ejection Time 0.4 s FINDINGS Left Ventricle Mild concentric left trickle hypertrophy with normal ejection fraction of 64%.no regional wall motion abnormalities. Right Ventricle Normal right ventricular size and systolic function. Right Atrium Mildly increased right atrial size. Left Atrium Mildly increased left atrial size. Mitral Valve Mild-moderate mitral valve regurgitation. Aortic Valve Thickened aortic valve. Aortic valve stenosis. Tricuspid Valve Moderate tricuspid valve regurgitation. Pulmonic Valve No gross abnormalities noted Pericardium No pericardial effusion. Aorta Normal aortic annulus size. IVC Inferior vena cava not visualized. CONCLUSIONS Mild concentric left trickle hypertrophy with normal ejection fraction of 64%.no regional wall motion abnormalities. Mild biatrial enlargement Mild-moderate mitral valve regurgitation. Features of aortic valve sclerosis. Moderate tricuspid valve regurgitation. There is no pericardial effusion. There are no intracardiac masses. Compared to the study from 08/29/2019, the biatrial enlargement appears to be new Dr Janett Peñaloza MD [facility] (Electronically Signed) Final Date: 29 April 2024 14:07 S
--- NOTE | 2024-04-29 04:08 | P.HP_ITS ---
Providers/Chief Complaint 2 Admitting Physician: Makayla Hughes MD Primary Care Provider: Lauryn Sheriff MD Chief Complaint: High blood pressure History of Present Illness Frantz Bearden is a 78 year old male With past medical history of prostatitis, hyperlipidemia, atrial flutter, hypothyroidism, BPH presented to the hospital today for elevated blood pressure. He status has been rising over the last 2 months and he is also seen his primary care doctor and was recently started on lisinopril and metoprolol. He has been taking his medications for about 6 weeks. Somehow his pressure is controlled and sometimes does not. He has noticed today that pressure has been significantly higher and he was starting to get lightheaded therefore he came to the hospital for evaluation. Denies any other symptoms. Has not had any chest pain, shortness of abdominal pain nausea vomiting diarrhea. He states he has been on the [place] x 2 in the past. He is very active. He is on lisinopril 20 twice daily at home. ER course blood pressure initially 216/100 systolic with mild dizziness. He was given 20 mg of hydralazine IV and 0.2 of clonidine. Initial troponin obtained. 6-hour troponin also resulted with a delta of total 26. EKG did show mild ST depressions initially with some inverted T waves. ER physician discussed case with Dr. Peñaloza who has recommended to admit patient for a stress test at this time. Medications/Allergies Home Medications Medication Instructions Recorded Confirmed Last Taken Type levothyroxine 50 mcg tablet 50 mcg PO QDAY 10/30/19 11/26/23 Unknown History (Synthroid) lisinopril 20 mg tablet 20 mg PO QDAY 10/30/19 11/26/23 Unknown History mirtazapine 15 mg tablet 15 mg PO QDAY 10/30/19 11/26/23 Unknown History pravastatin 20 mg tablet 20 mg PO QDAY 10/30/19 11/26/23 Unknown History tamsulosin 0.4 mg capsule See Rx Instructions .Route 09/14/22 11/26/23 Unknown Rx .COMPLEX #90 caps apixaban 5 mg tablet (Eliquis) 5 mg PO BID #180 tabs 07/10/23 11/26/23 Unknown Rx metoprolol tartrate 25 mg tablet 12.5 mg (1/2 x 25 mg) PO BID #30 02/11/24 Unknown Rx tabs Allergies Allergy/AdvReac Type Severity Reaction Status Date / Time azithromycin Allergy Unknown Verified 02/08/24 18:38 erythromycin base Allergy Unknown Verified 02/08/24 18:38 PFSH Acute 2 PFSH: Medical History Anticoagulation adequate with anticoagulant therapy Prostatitis BPH loc w urin obs/LUTS Elevated PSA Gross hematuria Hyperlipidemia BPH (benign prostatic hyperplasia) Basal cell carcinoma Atrial flutter Hypothyroidism Calculus of kidney Hypertension Surgical History H/O: knee surgery LEFT History of cholecystectomy H/O parathyroidectomy Family History Father , AT AGE 79 FH: CABG (coronary artery bypass surgery) Brother FH: CABG (coronary artery bypass surgery) Mother , AT AGE 96 No problems noted. Other CAD (coronary artery disease) Valvular heart disease Social History Smoking and tobacco/nicotine status: former use of tobacco/nicotine Alcohol intake: never Substance/Drug Use: never Marital status: Current occupational status: retired Vitals/I&O/Wt Last Vital Signs Temp 97.8 F 04/28/24 20:00 Pulse 61 04/29/24 04:03 Resp 16 04/29/24 04:03 BP 141/83 04/29/24 04:03 Pulse Ox 96 04/29/24 04:03 O2 Del Method Room Air 04/29/24 03:49 04/28/24 04/28/24 04/29/24 14:59 22:59 06:59 Output Total 300 / 300 Balance -300 / -300 Weight last 48 hrs Weight 63.503 kg Physical Exam 2 Narrative: General: Alert oriented x3, patient seen laying in bed appearing comfortable. HEENT: Normocephalic, atraumatic, EOMI, breathing room air Cardio: Regular rate rhythm, normal S1-S2 Respiratory: Clear to auscultation bilaterally GI: Abdomen soft, nontender, nondistended, bowel sounds + Extremities: No edema bilateral lower extremities Data 04/28/24 17:42 04/28/24 17:42 A&P Assessment and plan (1) Hypertension: Qualifiers: Hypertension type: essential hypertension Qualified Code(s): I10 - Essential (primary) hypertension (2) Hypertension, uncontrolled: (3) Non-ST elevation [place] (NSTEMI): (4) Atrial flutter: (5) Encounter for monitoring flecainide therapy: (6) Hyperlipidemia: Qualifiers: Hyperlipidemia type: mixed hyperlipidemia Qualified Code(s): E78.2 - Mixed hyperlipidemia (7) Hypothyroidism: Qualifiers: Hypothyroidism type: unspecified Qualified Code(s): E03.9 - Hypothyroidism, unspecified Plan #Hypertensive urgency #Elevated troponin, NSTEMI? Possibly demand ischemia #Hypertension #On anticoagulation? ? Patient on metoprolol, lisinopril at home. Given 0.2 clonidine in ER. Blood pressure improved. May need to uptitrate blood pressure medications at discharge. ? Delta troponin at 6 hours 29. No chest pain, shortness of breath or any other symptoms at this time. ? Cardiology consulted in ER. Recommend a stress test at this time. ? Admit patient to cardiac stepdown and monitor. Low threshold to repeat EKG and troponin if chest pain occurs. ? Continue patient's Eliquis, levothyroxine, lisinopril, metoprolol tartrate, pravastatin at this time. Will need to confirm patient's home medications. ? I believe patient's mild elevated troponin is secondary to hypertensive urgency with systolic blood pressure of 216 on arrival. He has not had any kind of chest pain. I will add baby aspirin at this time. ? On Eliquis but will suffice as DVT prophylaxis ? Placed on telemetry and monitor ? Check echo Full code Attestations 2 Medical Necessity Statement*: Expect discharge less than 48 hours stay. Diagnoses Essential hypertension I10 Hypertension type: essential hypertension Hypertension, uncontrolled I10 Non-ST elevation [place] (NSTEMI) I21.4 Atrial flutter I48.92 Encounter for monitoring flecainide therapy Z51.81; Z79.899 Mixed hyperlipidemia E78.2 Hyperlipidemia type: mixed hyperlipidemia Hypothyroidism, unspecified type E03.9 Hypothyroidism type: unspecified
--- NOTE | 2024-04-29 04:09 | NMCV_ITS ---
NM nilam perf SPECT r/s* [id number] Frantz Bearden Age: 78 Gender: M : 1945 Exam Date: 04/29/2024 04:09 Ordering Phys: Makayla Hughes MD Technologist: KANIKA Wilkerson Exam Location: [facility] [place] Indications: HTN STRESS TEST Please see separate stress test report in [facility] for full findings IMAGE PROTOCOL Rest/Stress 1 Lexiscan Day Radiopharmaceutical Dose (mCi) Administration Site Administered by Rest: Tc-99m 10.9 IV KANIKA Wilkerson Sestamibi Stress:Tc-99m 32.7 IV KANIKA Wilkerson Sestamibi Rest: 29-Apr-2024 60 Discovery 630 Stress: 29-Apr-2024 30 Discovery 630 0.4mg Lexiscan. Images obtained in supine and prone position. SPECT RESULTS Technical Quality: Good Raw Data Analysis: Normal Image Corrections: No attenuation or motion correction applied Summed Stress Score: 0 Summed Rest Score: 0 Summed Difference Score: 0 PERFUSION FINDINGS Uniform myocardial tracer uptake with no significant Perfusion and abnormalities FUNCTIONAL RESULTS (calculated via Gated SPECT) Stress Image LV EF (%): 94 Stress EDV (mL):54 TID: 1.19 Stress ESV (mL):3 FUNCTIONAL FINDINGS: Segmental wall motion analysis revealing no gross wall motion abnormalities IMPRESSIONS 1. Uniform myocardial tracer uptake with no significant perfusion abnormalities 2. Normal LV ejection fraction of 94%. 3. LV wall motion analysis revealing no gross wall motion abnormalities. 4. Normal LV volume Low probability for coronary ischemia, based on the above findings No similar previous studies are available for comparison Dr Janett Peñaloza MD FAC (Electronically Signed) Final Date: 29 April 2024 12:30 S
[2024-04-29 04:46] LABS: Chol HDL Ratio 3.06 mg/dL (1.0-5.00); Cholesterol 159 mg/dL (0-200); HDL Cholesterol 52 mg/dL (60-100); LDL Cholesterol Calculated 91 mg/dL (50-129); LDL HDL Ratio 1.75 RATIO (0.00-3.22); Triglycerides 79 mg/dL (0-150)
[2024-04-29 05:16] LABS: Estmated Average Glucose 103; Hemoglobin A1C 5.2 % (4.0-6.0)
[2024-04-29] MEDS: sodium chloride 0.9% 1,000 ML 75 ML IV (05:59)
[2024-04-29] MEDS: levothyroxine 50 mcg Tablet PO (06:00)
[2024-04-29] MEDS: lisinopril 20 mg Tablet PO ×2 (06:02→08:29)
--- NOTE | 2024-04-29 08:26 | PC.NURSE ---
per film laboratory technician, pt can have morning meds.
[2024-04-29] MEDS: metoprolol tartrate 25 mg Tablet 12.5 MG PO (08:30)
[2024-04-29] MEDS: tamsulosin 0.4 mg Capsule PO (08:30)
[2024-04-29] MEDS: apixaban 5 mg Tablet PO (08:30)
--- NOTE | 2024-04-29 09:22 | PC.NURSE ---
pt went to stress test @ [id number]
--- NOTE | 2024-04-29 09:58 | P.CONIM_ITS ---
Providers/Reason For Consult 2 Consulting Physician/Specialty*: Jordi Peñaloza MD/cardiology Reason for Consult*: Patient with chest pain and elevated troponin T Requesting Physician: Dr. Oneal Attending Physician: Isaias Oneal MD Primary Care Provider: Lauryn Sheriff MD History of Present Illness History of Present Illness Frantz Bearden is a 78 year old male with a history of hypertension, dyslipidemia, atrial flutter/fibrillation, on long-term oral oral anticoagulation he is admitted to hospital through the emergency room, where he presented with complaints of uncontrolled blood pressure. He was found to have elevated troponin T. Cardiology consult is requested for further cardiac evaluation recommendations. This patient has no previous history for any coronary disease or myocardial infarction. He has a longstanding history of hypertension. Recently the blood pressure medications were changed by his primary care provider. He checks his blood pressure at home once in a while. Yesterday he was checking his blood pressure in the evening and the pressure was found to be elevated. He kept checking the pressure and every time it was found to be keep going higher and higher. So when the pressure got up into the 200 range he decided to come to the hospital. He did not have any chest pain or chest tightness. No shortness of breath. He did not have any fever, chills or cough. He mainly had a slight headache. But no other associated symptoms. He has a history of atrial flutter/fibrillation and is on long-term oral anticoagulation. Also is known to have dyslipidemia and has been taking the statin. No history for any bleeding ulcers. No abdominal pain or dysuria. No other specific complaints. Review of Systems 2 Narrative: CONSTITUTIONAL: No fever or chills. EYES: No blurring of vision or other visual disturbances lately. ENT: No hoarseness of voice, auditory disturbances or sore throat. CARDIOVASCULAR: As mentioned above. RESPIRATORY: No significant cough. GASTROINTESTINAL: No hematemesis or melena. GENITOURINARY: No dysuria or hematuria. INTEGUMENTARY: No skin rashes or history of skin cancer. NEURO: No transient ischemic attacks or amaurosis. PSYCHIATRIC: No history of psychosis or major depression. HEMATOLOGIC: On long-term oral anticoagulation ENDOCRINE: No history of polyuria or polydipsia. MUSCULOSKELETAL: No recent joint pain or swelling. ALLERGY/IMMUNOLOGY: As mentioned above. Medications/Allergies Home Medications Medication Instructions Recorded Confirmed Last Taken Type levothyroxine 50 mcg tablet 50 mcg PO QAM 10/30/19 04/29/24 04/28/24 History (Synthroid) lisinopril 20 mg tablet 20 mg PO BID 10/30/19 04/29/24 04/28/24 History mirtazapine 15 mg tablet 15 mg PO QPM 10/30/19 04/29/24 04/27/24 History pravastatin 20 mg tablet 20 mg PO QPM 10/30/19 04/29/24 04/27/24 History tamsulosin 0.4 mg capsule See Rx Instructions .Route 09/14/22 04/29/24 04/27/24 Rx .COMPLEX #90 caps apixaban 5 mg tablet (Eliquis) 5 mg PO BID #180 tabs 07/10/23 04/29/24 04/28/24 Rx metoprolol tartrate 25 mg tablet 25 mg PO BID 04/29/24 04/29/24 04/28/24 History Allergies Allergy/AdvReac Type Severity Reaction Status Date / Time azithromycin Allergy Unknown Verified 02/08/24 18:38 erythromycin base Allergy Unknown Verified 02/08/24 18:38 Current Medications Generic Name Dose Route Start Last Admin Trade Name Freq PRN Reason Stop Dose Admin Apixaban 5 mg 04/29/24 09:00 04/29/24 08:30 Apixaban 5 Mg Tablet PO 5 mg BID MARCIE Administration Sodium Chloride 1,000 mls @ 75 mls/hr 04/29/24 04:15 04/29/24 05:59 Sodium Chloride 0.9% IV 75 mls/hr .[id number] MARCIE Administration Levothyroxine Sodium 50 mcg 04/29/24 06:30 04/29/24 06:00 Levothyroxine 50 Mcg Tablet PO 50 mcg 0630 MARCIE Administration Lisinopril 20 mg 04/29/24 04:15 04/29/24 08:29 Lisinopril 20 Mg Tablet PO 20 mg DAILY MARCIE Administration Metoprolol Tartrate 12.5 mg 04/29/24 09:00 04/29/24 08:30 Metoprolol Tartrate 25 Mg Tablet PO 12.5 mg BID MARCIE Administration Tamsulosin HCl 0.4 mg 04/29/24 09:00 04/29/24 08:30 Tamsulosin 0.4 Mg Capsule PO 0.4 mg DAILY MARCIE Administration PFSH Acute 2 PFSH: Medical History Anticoagulation adequate with anticoagulant therapy Prostatitis BPH loc w urin obs/LUTS Elevated PSA Gross hematuria Hyperlipidemia BPH (benign prostatic hyperplasia) Basal cell carcinoma Atrial flutter Hypothyroidism Calculus of kidney Hypertension Surgical History H/O: knee surgery LEFT History of cholecystectomy H/O parathyroidectomy Family History Father , AT AGE 79 FH: CABG (coronary artery bypass surgery) Brother FH: CABG (coronary artery bypass surgery) Mother , AT AGE 96 No problems noted. Other CAD (coronary artery disease) Valvular heart disease Social History Smoking and tobacco/nicotine status: former use of tobacco/nicotine Alcohol intake: never Substance/Drug Use: never Marital status: Current occupational status: retired Vitals/I&O/Wt Last Vital Signs Temp 97.8 F 04/28/24 20:00 Pulse 72 04/29/24 08:00 Resp 16 04/29/24 08:00 BP 164/94 04/29/24 08:00 Pulse Ox 97 04/29/24 08:00 O2 Del Method Room Air 04/29/24 08:00 04/28/24 04/29/24 04/29/24 22:59 06:59 14:59 Output Total 300 / 300 Balance -300 / -300 Weight last 48 hrs Weight 140 lb Physical Exam 2 Narrative: GENERAL: The patient is alert and oriented times three. Not in any acute distress. HEENT: No significant pallor, icterus or lymphadenopathy.Oral cavity: There are no mucous membrane lesions. NECK: Trachea appears to be central. No masses noted. No JVD or thyromegaly appreciated. RESPIRATORY: Chest is symmetrical. No intercostals muscle retraction or any accessory muscle activation. There is no chest wall tenderness. Breath sounds are heard bilaterally. No rales or rhonchi heard. No evidence of any consolidation. BREASTS: Deferred. HEART: The heart sounds are normal. No S3 or S4. Short systolic murmur the left sternal border. No diastolic murmurs. No pericardial rub ABDOMEN: No vessel pulsations or distention. No tenderness. No organomegaly appreciated. Bowel sounds are normally heard. : Deferred. RECTAL: Deferred. LYMPHATIC: No lymphadenopathy noted in the neck. EXTREMITIES: No edema or cyanosis. No clubbing. MUSCULOSKELETAL: No acute joint deformities or swelling SKIN: There are no significant rashes or ecchymosis NEUROPSYCHIATRIC: The patient is alert and oriented x3. Appears to be in a good mood. No tremors or rigidity noted. Data 04/28/24 17:42 04/28/24 17:42 Other Labs: Laboratory Last Values WBC 7.19 10^3/uL (3.29-11.43) 04/28/24 17:42 RBC 6.06 10^6/uL (3.85-5.65) H 04/28/24 17:42 Hgb 18.50 g/dL (11.27-16.99) H 04/28/24 17:42 Hct 53.4 % (37-53) H 04/28/24 17:42 MCV 88.1 fl (82-101) 04/28/24 17:42 MCH 30.5 pg (27-33) 04/28/24 17:42 MCHC 34.6 g/dL (30-55) 04/28/24 17:42 RDW 12.2 % (12.1-15.1) 04/28/24 17:42 Plt Count 187 10^3/cmm (157-399) 04/28/24 17:42 MPV 10.9 fL (7.4-10.4) H 04/28/24 17:42 Neut % (Auto) 71.5 % 04/28/24 17:42 Lymph % (Auto) 19.7 % 04/28/24 17:42 [place] % (Auto) 6.3 % 04/28/24 17:42 Eos % (Auto) 1.1 % 04/28/24 17:42 Baso % (Auto) 1.0 % 04/28/24 17:42 Neut # (Auto) 5.14 10^3/uL (1.8-7.7) 04/28/24 17:42 Lymph # (Auto) 1.4 10^3/uL (0.8-4.8) 04/28/24 17:42 [place] # (Auto) 0.5 10^3/uL (0.2-0.9) 04/28/24 17:42 Eos # (Auto) 0.1 10^3/uL (0.0-0.8) 04/28/24 17:42 Baso # (Auto) 0.1 10^3/uL (0.0-0.1) 04/28/24 17:42 Nucleated RBC % (auto) 0 % 04/28/24 17:42 Nucleated RBCs # 0.0 /100WBC 04/28/24 17:42 Sodium 137 mmol/L (136-145) 04/28/24 17:42 Potassium 4.1 mmol/L (3.5-5.1) 04/28/24 17:42 Chloride 101 mmol/L (98-107) 04/28/24 17:42 Carbon Dioxide 24 mmol/L (22-29) 04/28/24 17:42 Anion Gap 16.1 (5-19) 04/28/24 17:42 BUN 16 mg/dL (8-23) 04/28/24 17:42 Creatinine 1.2 mg/dL (0.7-1.2) 04/28/24 17:42 GFR Calculation Not Reportable 04/28/24 17:42 Glucose 107 mg/dL (65-115) 04/28/24 17:42 Estimat Average Glucose 103 04/28/24 17:42 Hemoglobin A1c 5.2 % (4.0-6.0) 04/28/24 17:42 Calculated Osmolality 286 mOsm/kg (285-295) 04/28/24 17:42 Calcium 8.9 mg/dL (8.5-10.5) 04/28/24 17:42 Total Bilirubin 1.0 mg/dL (0.15-1.2) 04/28/24 17:42 AST 20 U/L (0-40) 04/28/24 17:42 ALT 10 U/L (0-41) 04/28/24 17:42 Alkaline Phosphatase 89 U/L (40-130) 04/28/24 17:42 Troponin T Baseline 19 ng/L (0-15) H 04/28/24 20:26 Troponin T 120 Minute 29.58 ng/L (0-15) H 04/28/24 22:39 Delta Troponin T 10.58 ABS# (0-10) H* 04/28/24 22:39 Troponin T Hi Sens 6Hr 45.78 ng/L (0-15) H 04/29/24 02:20 Troponin T Hi Sens 6Hr Delta 26.78 ng/L (0-12) H* 04/29/24 02:20 Total Protein 7.5 g/dL (6.6-8.7) 04/28/24 17:42 Albumin 4.6 g/dL (3.5-5.2) 04/28/24 17:42 Globulin 2.9 g/dL (1.3-4.6) 04/28/24 17:42 Triglycerides 79 mg/dL (0-150) 04/29/24 02:20 Cholesterol 159 mg/dL (0-200) 04/29/24 02:20 LDL Cholesterol, Calc 91 mg/dL (50-129) 04/29/24 02:20 HDL Cholesterol 52 mg/dL (60-100) L 04/29/24 02:20 LDL/HDL Ratio 1.75 RATIO (0.00-3.22) 04/29/24 02:20 Cholesterol/HDL Ratio 3.06 mg/dL (1.0-5.00) 04/29/24 02:20 TSH 4.90 uIU/mL (0.27-4.20) H 04/29/24 02:20 Urine Color Yellow (Yellow) 04/28/24 19:26 Urine Appearance Clear (CLEAR) 04/28/24 19:26 Urine pH 5 (5-7) 04/28/24 19:26 Ur Specific [place] 1.015 (1.005-1.030) 04/28/24 19:26 Urine Protein Neg (Negative) 04/28/24 19:26 Urine Glucose (UA) Norm (Normal) 04/28/24 19:26 Urine Ketones Negative (Negative) 04/28/24 19:26 Urine Blood 3+ (Negative) H 04/28/24 19:26 Urine Nitrate Negative (Negative) 04/28/24 19:26 Urine Bilirubin Neg (Negative) 04/28/24 19:26 Urine Urobilinogen Norm mg/dL (Negative) 04/28/24 19:26 Ur Leukocyte Esterase Negative (Negative) 04/28/24 19:26 Urine RBC 0-4 /hpf (0-2) H 04/28/24 19:26 Urine WBC 0-4 /hpf (0-5) H 04/28/24 19:26 Ur Squamous Epith Cells 0-4 /hpf (0-5) H 04/28/24 19:26 Amorphous Sediment Not Reportable 04/28/24 19:26 Urine Bacteria Trace /hpf (NONE) 04/28/24 19:26 Other data: EKG from 04/29/2024 Normal sinus rhythm with some nonspecific ST changes. Possible left atrial enlargement. Otherwise unremarkable. Because of the baseline artifact, somewhat difficult to interpret Transthoracic echocardiogram 29 August 2019: Normal left ventricle size and systolic function with no regional wall motion abnormalities. Grade 1 diastolic dysfunction. Normal right ventricular size and systolic function. Mild tricuspid valve regurgitation. Myocardial perfusion imaging from today, 04/29/2024 1. Uniform myocardial tracer uptake with no significant perfusion abnormalities 2. Normal LV ejection fraction of 94%. 3. LV wall motion analysis revealing no gross wall motion abnormalities. 4. Normal LV volume Low probability for coronary ischemia, based on the above findings No similar previous studies are available for comparison A&P Assessment and plan (1) Elevated troponin: The elevated troponin T, most likely from type II myocardial infarction. The Myocardial perfusion imaging did not reveal any ischemia. No significant EKG changes. Patient is currently asymptomatic. (2) Hypertension: Patient blood pressure is currently elevated. For better control of blood pressure, I may go ahead and give him amlodipine 5 mg p.o. now and daily. His blood pressure needs to be closely monitored. Qualifiers: Hypertension type: essential hypertension Qualified Code(s): I10 - Essential (primary) hypertension (3) Atrial flutter: Currently the patient seems to be in sinus rhythm. May continue on the current medications. Qualifiers: Atrial flutter type: typical Qualified Code(s): I48.3 - Typical atrial flutter (4) Hyperlipidemia: Continue on the current medication. Qualifiers: Hyperlipidemia type: mixed hyperlipidemia Qualified Code(s): E78.2 - Mixed hyperlipidemia (5) Anticoagulation adequate with anticoagulant therapy: Patient is on Eliquis which may be continued. (6) Hypothyroidism: Clinically euthyroid. May continue on the current medications Qualifiers: Hypothyroidism type: unspecified Qualified Code(s): E03.9 - Hypothyroidism, unspecified Plan Patient had a Myocardial perfusion imaging today. The Perfusion scan revealed no evidence of any [place] ischemia. The implications of the Myocardial perfusion imaging results are discussed with the patient. In the absence of any objective evidence of ischemia and also any symptoms of coronary insufficiency, he may not require any further investigations at this point. He may continue on the current medications. Thank for the opportunity to eval this patient and make these recommendations. Consult Attestations 2 Medical Necessity Statement: Disposition as per the primary Coding Level of Care Code 48826 Diagnoses Elevated troponin R79.89 Essential hypertension I10 Hypertension type: essential hypertension Typical atrial flutter I48.3 Atrial flutter type: typical Mixed hyperlipidemia E78.2 Hyperlipidemia type: mixed hyperlipidemia Anticoagulation adequate with anticoagulant therapy Z79.01 Hypothyroidism, unspecified type E03.9 Hypothyroidism type: unspecified
[2024-04-29] MEDS: aspirin 81 mg EC Tablet PO (12:24)
[2024-04-29] MEDS: sodium chloride 0.9% 1,000 ML 50 ML IV (12:52)
--- NOTE | 2024-04-29 13:19 | PC.NURSE ---
admitted in to room 111-2 from er at 1145.report received.pt is alert and oriented x 4.denies pain at present.sr on monitor.bp 162/92.oriented to room environment.instructed to notify staff for any pain,sob,headache,numbness,or for any concerns at all.pt verb understanding of instructions
[2024-04-29] MEDS: amlodipine 5 mg Tablet PO (14:45)
--- NOTE | 2024-04-29 15:51 | PM.DCS ---
Discharge Providers Date of Admission: 04/29/24 03:32 Date of Discharge: April 29, 2024 Attending Provider at Admission: Makayla Hughes MD Attending Provider at Discharge: Isaias Oneal MD Primary Care Provider: Lauryn Sheriff MD Diagnoses at Discharge Discharge Diagnosis (1) Elevated troponin: Status: Acute (2) Hypertension: Status: Acute Qualifiers: Hypertension type: essential hypertension Qualified Code(s): I10 - Essential (primary) hypertension (3) Atrial flutter: Status: Acute Qualifiers: Atrial flutter type: typical Qualified Code(s): I48.3 - Typical atrial flutter (4) Hyperlipidemia: Status: Acute Qualifiers: Hyperlipidemia type: mixed hyperlipidemia Qualified Code(s): E78.2 - Mixed hyperlipidemia (5) Anticoagulation adequate with anticoagulant therapy: Status: Acute (6) Hypothyroidism: Status: Acute Qualifiers: Hypothyroidism type: unspecified Qualified Code(s): E03.9 - Hypothyroidism, unspecified Reason for Visit Reason for Visit: High blood pressure Hospital Course Hospital Course Frantz is an 78-year-old white male who presented to the emergency department with hypertension. He had had some recent problems with his blood pressure with escalation of blood pressure medications. In the emergency department he had a mildly abnormal EKG and troponin was obtained. A positive delta was noted. There was concern this might represent a non-ST elevation myocardial infarction. He was placed in observation in the hospital. Echocardiogram was performed which demonstrated a preserved EF, moderate mitral regurg, biatrial enlargement, moderate tricuspid regurg. A nuclear stress test was performed, which showed no reversible ischemia. As he had no chest discomfort, blood pressure was improved after adding amlodipine to his regimen, it was thought he could be discharged home. Discharge blood pressure 137/82, heart rate of 67. He will follow-up with his primary care provider 3 to 5 days and cardiology clinic in approximately 2 weeks. He was able ask questions and agreed with the plan. Physical Exam Narrative: General exam no distress Neck is supple Cardiovascular regular rate and rhythm with 2/6 systolic murmur heard at apex Lungs clear Abdomen soft Extremities no cyanosis clubbing edema Discharge Data Studies Completed and Pending Completed Studies During Hospitalization Category Date Time Status Sestamibi Stress Test Request Routine Exams 04/29/24 04:08 Draft NM nilam perf SPECT r/s* [id number] Routine Nuc Med 04/29/24 04:09 Completed CV. echo complete* [id number] Routine Ultrasound 04/29/24 04:08 Completed Pending at discharge Category Date Time Status Basic Metabolic Panel AM LABS Lab 04/30/24 04:00 Ordered Complete Blood Count w/Auto AM LABS Lab 04/30/24 04:00 Ordered Magnesium AM LABS Lab 04/30/24 04:00 Ordered Laboratory Results WBC 7.19 10^3/uL (3.29-11.43) 04/28/24 17:42 RBC 6.06 10^6/uL (3.85-5.65) H 04/28/24 17:42 Hgb 18.50 g/dL (11.27-16.99) H 04/28/24 17:42 Hct 53.4 % (37-53) H 04/28/24 17:42 MCV 88.1 fl (82-101) 04/28/24 17:42 MCH 30.5 pg (27-33) 04/28/24 17:42 MCHC 34.6 g/dL (30-55) 04/28/24 17:42 RDW 12.2 % (12.1-15.1) 04/28/24 17:42 Plt Count 187 10^3/cmm (157-399) 04/28/24 17:42 MPV 10.9 fL (7.4-10.4) H 04/28/24 17:42 Neut % (Auto) 71.5 % 04/28/24 17:42 Lymph % (Auto) 19.7 % 04/28/24 17:42 [place] % (Auto) 6.3 % 04/28/24 17:42 Eos % (Auto) 1.1 % 04/28/24 17:42 Baso % (Auto) 1.0 % 04/28/24 17:42 Neut # (Auto) 5.14 10^3/uL (1.8-7.7) 04/28/24 17:42 Lymph # (Auto) 1.4 10^3/uL (0.8-4.8) 04/28/24 17:42 [place] # (Auto) 0.5 10^3/uL (0.2-0.9) 04/28/24 17:42 Eos # (Auto) 0.1 10^3/uL (0.0-0.8) 04/28/24 17:42 Baso # (Auto) 0.1 10^3/uL (0.0-0.1) 04/28/24 17:42 Nucleated RBC % (auto) 0 % 04/28/24 17:42 Nucleated RBCs # 0.0 /100WBC 04/28/24 17:42 Sodium 137 mmol/L (136-145) 04/28/24 17:42 Potassium 4.1 mmol/L (3.5-5.1) 04/28/24 17:42 Chloride 101 mmol/L (98-107) 04/28/24 17:42 Carbon Dioxide 24 mmol/L (22-29) 04/28/24 17:42 Anion Gap 16.1 (5-19) 04/28/24 17:42 BUN 16 mg/dL (8-23) 04/28/24 17:42 Creatinine 1.2 mg/dL (0.7-1.2) 04/28/24 17:42 GFR Calculation Not Reportable 04/28/24 17:42 Glucose 107 mg/dL (65-115) 04/28/24 17:42 Estimat Average Glucose 103 04/28/24 17:42 Hemoglobin A1c 5.2 % (4.0-6.0) 04/28/24 17:42 Calculated Osmolality 286 mOsm/kg (285-295) 04/28/24 17:42 Calcium 8.9 mg/dL (8.5-10.5) 04/28/24 17:42 Total Bilirubin 1.0 mg/dL (0.15-1.2) 04/28/24 17:42 AST 20 U/L (0-40) 04/28/24 17:42 ALT 10 U/L (0-41) 04/28/24 17:42 Alkaline Phosphatase 89 U/L (40-130) 04/28/24 17:42 Troponin T Baseline 19 ng/L (0-15) H 04/28/24 20:26 Troponin T 120 Minute 29.58 ng/L (0-15) H 04/28/24 22:39 Delta Troponin T 10.58 ABS# (0-10) H* 04/28/24 22:39 Troponin T Hi Sens 6Hr 45.78 ng/L (0-15) H 04/29/24 02:20 Troponin T Hi Sens 6Hr Delta 26.78 ng/L (0-12) H* 04/29/24 02:20 Total Protein 7.5 g/dL (6.6-8.7) 04/28/24 17:42 Albumin 4.6 g/dL (3.5-5.2) 04/28/24 17:42 Globulin 2.9 g/dL (1.3-4.6) 04/28/24 17:42 Triglycerides 79 mg/dL (0-150) 04/29/24 02:20 Cholesterol 159 mg/dL (0-200) 04/29/24 02:20 LDL Cholesterol, Calc 91 mg/dL (50-129) 04/29/24 02:20 HDL Cholesterol 52 mg/dL (60-100) L 04/29/24 02:20 LDL/HDL Ratio 1.75 RATIO (0.00-3.22) 04/29/24 02:20 Cholesterol/HDL Ratio 3.06 mg/dL (1.0-5.00) 04/29/24 02:20 TSH 4.90 uIU/mL (0.27-4.20) H 04/29/24 02:20 Urine Color Yellow (Yellow) 04/28/24 19:26 Urine Appearance Clear (CLEAR) 04/28/24 19:26 Urine pH 5 (5-7) 04/28/24 19:26 Ur Specific [place] 1.015 (1.005-1.030) 04/28/24 19:26 Urine Protein Neg (Negative) 04/28/24 19:26 Urine Glucose (UA) Norm (Normal) 04/28/24 19:26 Urine Ketones Negative (Negative) 04/28/24 19:26 Urine Blood 3+ (Negative) H 04/28/24 19:26 Urine Nitrate Negative (Negative) 04/28/24 19:26 Urine Bilirubin Neg (Negative) 04/28/24 19:26 Urine Urobilinogen Norm mg/dL (Negative) 04/28/24 19:26 Ur Leukocyte Esterase Negative (Negative) 04/28/24 19:26 Urine RBC 0-4 /hpf (0-2) H 04/28/24 19:26 Urine WBC 0-4 /hpf (0-5) H 04/28/24 19:26 Ur Squamous Epith Cells 0-4 /hpf (0-5) H 04/28/24 19:26 Amorphous Sediment Not Reportable 04/28/24 19:26 Urine Bacteria Trace /hpf (NONE) 04/28/24 19:26 Vitals Last Vital Signs Temp 97.8 F 04/28/24 20:00 Pulse 67 04/29/24 14:56 Resp 20 H 04/29/24 12:55 BP 137/82 04/29/24 14:56 Pulse Ox 96 04/29/24 14:56 O2 Del Method Room Air 04/29/24 13:49 Discharge Plan Discharge Patient Disposition: Home Condition: Stable Prescriptions: New amlodipine 5 mg Tablet 5 mg PO DAILY Qty: 30 0RF Continued lisinopril 20 mg tablet 20 mg PO BID mirtazapine 15 mg tablet 15 mg PO QPM pravastatin 20 mg tablet 20 mg PO QPM levothyroxine [Synthroid] 50 mcg tablet 50 mcg PO QAM tamsulosin 0.4 mg capsule See Rx Instructions .ROUTE .COMPLEX Qty: 90 3RF Dose Instruction: TAKE 1 CAPSULE BY MOUTH EVERY DAY Rx Instructions: TAKE 1 CAPSULE BY MOUTH EVERY EVENING. Eliquis 5 mg tablet 5 mg PO BID Qty: 180 3RF metoprolol tartrate 25 mg tablet 25 mg PO BID Discharge Orders: Discharge Order (Routine); Ordered 04/29/24 Ordered By: Isaias Oneal Referrals: Lauryn Sheriff MD [Primary Care Provider] - 05/02/24 8:30 am Juani Slaughter FNP [Nurse Practitioner] - 05/21/24 1:30 pm (follow up uncontrolled HTN) Discharge Diet: Cardiac Discharge Activity: Increase activity as tolerated Patient Instructions: Amlodipine (By mouth), Chronic Hypertension (GEN), Hypertension (DC), Opioid Safety, Pain Management Activity Restrictions/Additional Instructions: Follow-up with primary care provider in 3 to 5 days, Juani Slaughter in 2 weeks. Return for any concerns Take all medicine as prescribed. Note the addition of Norvasc 5 mg daily. Discharge Attestations Time Spent in Discharge Care*: greater than 30 min Quality Metrics Clinical Quality Measures [ No reported AMI, CVA or VTE this stay] Coding Level of Care Code 37094 Total time (in minutes) for Discharge: 36 Diagnoses Elevated troponin R79.89 Essential hypertension I10 Hypertension type: essential hypertension Typical atrial flutter I48.3 Atrial flutter type: typical Mixed hyperlipidemia E78.2 Hyperlipidemia type: mixed hyperlipidemia Anticoagulation adequate with anticoagulant therapy Z79.01 Hypothyroidism, unspecified type E03.9 Hypothyroidism type: unspecified
== END 2024-04-29 17:21 | disposition home or self-care (01) ==
LOC: ER 04-29 03:31 → ER IP 04-29 03:32 → CSU 04-29 12:04
PROVIDERS: Emergency Medicine; Admitting Provider Internal Medicine; Emergency Provider Internal Medicine; PCP Internal Medicine; Visit Provider Internal Medicine
DX: R79.89 Other specified abnormal findings of blood chemistry (principal); I10 Essential (primary) hypertension; I48.3 Typical atrial flutter; E78.2 Mixed hyperlipidemia; Z79.01 Long term (current) use of anticoagulants; E03.9 Hypothyroidism, unspecified; N40.1 Benign prostatic hyperplasia with lower urinary tract symptoms; N13.8 Other obstructive and reflux uropathy; Z82.49 Family history of ischemic heart disease and other diseases of the circulatory system; Z87.891 Personal history of nicotine dependence
CPT/HCPCS: 36415; 78452; 80053; 80061; 81001; 83036; 84443; 84484; 85025; 93005; 93017; 93306; 96360; 96361; 96372; 96375; 99285; A9500; G0378; J0360; J7030

== ENCOUNTER → 2024-05-21 13:12 | Outpatient (BNVA) | payer MEDICARE, SELFPAY | PROVIDERS: PCP Internal Medicine; Visit Provider Nurse Practitioner Family | DX: I10 Essential (primary) hypertension (principal) | CPT/HCPCS: 99213 ==

== ENCOUNTER → 2024-11-25 12:21 | Outpatient (BNVA) | payer MEDICARE, SELFPAY | PROVIDERS: PCP Internal Medicine; Visit Provider Internal Medicine Cardiovascular Disease | DX: I10 Essential (primary) hypertension (principal); E78.2 Mixed hyperlipidemia; I48.91 Unspecified atrial fibrillation; I48.92 Unspecified atrial flutter; Z79.01 Long term (current) use of anticoagulants; Z87.891 Personal history of nicotine dependence | CPT/HCPCS: 99214 ==

== ENCOUNTER 2025-01-03 14:20 | Emergency (ER) | payer MEDICARE, SELFPAY ==
[2025-01-03] VITALS (10 sets, daily range): BP systolic 117–131; BP diastolic 62–101; PULSE 60–154; RESP 13–20; TEMP 36.8; O2SAT 96–99; BMI 21.2
--- NOTE | 2025-01-03 14:22 | ECG_ITS ---
[employer] Test Date: 2025-01-03 Pat Name: Frantz Bearden Department: Room: Gender: Male Vendor Representatives: : 1945 Requested By: Damir Bustamante Order Number: [id number] Cedrick MD: Janett Peñaloza M.D. Measurements Intervals [place] Rate: 66 P: 130 ME: 148 QRS: 37 QRSD: 81 T: 54 QT: 378 QTc: 396 Interpretive Statements Atrial fibrillation with a controlled with ventricular response rate ST DEVIATION AND MODERATE T-WAVE ABNORMALITY, CONSIDER LATERAL ISCHEMIA [-0.1+ mV T-WAVE IN I/aVL/V5/V6] Compared to ECG 04/29/2024 03:00:02 Ectopic atrial rhythm now present T-wave abnormality now present Possible ischemia now present Sinus rhythm no longer present ST (T wave) deviation no longer present Electronically Signed On 01-04-2025 22:46:15 CDT by Janett Peñaloza M.D. [id number]
--- NOTE | 2025-01-03 14:34 | XRR_ITS ---
PROCEDURE INFORMATION: Exam: XR Chest Exam date and time: 01/03/2025 2:39 PM Age: 79 years old Clinical indication: Other: Afib TECHNIQUE: Imaging protocol: Radiologic exam of the chest. Views: 1 view. COMPARISON: CR XR chest 1V portable [id number] 02/08/2024 7:00 PM FINDINGS: Lungs: Curvilinear bilateral opacities which can be seen with emphysematous lung changes. No focal lung consolidations. Pleural spaces: Unremarkable. No pleural effusion. No pneumothorax. Heart/Mediastinum: Unremarkable. No cardiomegaly. Bones/joints: Unremarkable. XR/XR chest 1V portable [id number] IMPRESSION: 1. No focal lung consolidations. 2. Emphysematous lung changes.
[2025-01-03] MEDS: sodium chloride 0.9% 1,000 ML 999 ML IV (14:39)
[2025-01-03] MEDS: dilTIAZem 5 mg/mL SDV 5 mL 20 MG IVP (14:39)
--- NOTE | 2025-01-03 14:42 | W.ED.ARRPALP ---
HPI - Arrhythmia/Palpitations General: Chief Complaint: Arrhythmia/Palpitations Stated Complaint: rapid HR high BP Time Seen by Provider: 01/03/25 14:34 Source: patient Mode of arrival: ambulatory Limitations: no limitations History of Present Illness: 79-year-old male history of A-fib he states that he felt like his heart was racing since last night states he checked his blood pressures morning and noticed his heart rate was in the 150s. He is in A-fib with RVR here in the 150s he denies any chest pain he denies any shortness of breath denies any nausea or vomiting. He is on apixaban along with metoprolol. Associated symptoms: Deny nausea or vomiting Related Data Home Medications ?Medication ?Instructions ?Recorded ?Confirmed levothyroxine 50 mcg tablet 50 mcg PO QAM 10/30/19 01/03/25 (Synthroid) lisinopril 20 mg tablet 20 mg PO BID 10/30/19 01/03/25 mirtazapine 15 mg tablet 15 mg PO QPM 10/30/19 01/03/25 pravastatin 20 mg tablet 20 mg PO QPM 10/30/19 01/03/25 metoprolol tartrate 25 mg tablet 25 mg PO BID 04/29/24 01/03/25 tamsulosin 0.4 mg capsule 0.4 mg PO QPM 01/03/25 01/03/25 Previous Rx's ?Medication ?Instructions ?Recorded apixaban 5 mg tablet (Eliquis) 5 mg PO BID #180 tabs 07/10/23 amlodipine 5 mg tablet 5 mg PO DAILY #90 tabs 05/21/24 Allergies Allergy/AdvReac Type Severity Reaction Status Date / Time azithromycin Allergy Unknown Verified 11/25/24 13:01 erythromycin base Allergy Unknown Verified 11/25/24 13:01 Review of Systems Const: Denies: fever(s), chills, body aches or change in appetite ENMT: Denies: throat pain or dental pain Card: Reports: palpitations and irregular heart rhythm; Denies: chest pain Resp: Denies: dyspnea GI: Denies: abdominal pain, nausea, vomiting or diarrhea Musc: Denies: neck pain or back pain Skin/Breast: Denies: rash Neuro: Denies: headache(s) PFS ED PFSH: Medical History Anticoagulation adequate with anticoagulant therapy Prostatitis BPH loc w urin obs/LUTS Elevated PSA Gross hematuria Hyperlipidemia BPH (benign prostatic hyperplasia) Basal cell carcinoma Atrial flutter Hypothyroidism Calculus of kidney Hypertension Surgical History H/O: knee surgery LEFT History of cholecystectomy H/O parathyroidectomy Family History Father , AT AGE 79 FH: CABG (coronary artery bypass surgery) Brother FH: CABG (coronary artery bypass surgery) Mother , AT AGE 96 No problems noted. Other CAD (coronary artery disease) Valvular heart disease Social History Smoking and tobacco/nicotine status: former use of tobacco/nicotine Alcohol intake: never Substance/Drug Use: never Marital status: Current occupational status: retired Physical Exam Const: COMMON NORMALS: no acute distress, patient oriented x3 and healthy appearing HENMT: COMMON NORMALS: normocephalic and atraumatic HEAD & SCALP: normocephalic and atraumatic Eye: COMMON NORMALS: conjunctivae normal CONJUNCTIVA: Yes conjunctivae normal Neck/C-Spine: COMMON NORMALS: full ROM and supple Chest: COMMONS NORMALS: normal inspection of the chest Resp: COMMON NORMALS: normal respiratory effort, No retractions, No use of accessory muscles and clear to auscultation bilaterally AUSCULTATION: clear to auscultation bilaterally Cardio: COMMON NORMALS: No murmurs present (Cardio) RATE: tachycardic RHYTHM: abnormal rhythm irregularly irregular GI: COMMON NORMALS: Normal to inspection, nondistended, normoactive bowel sounds present, Soft to palpation, non-tender and no masses PALPATION: Yes Soft to palpation Extremity: COMMON NORMALS: normal to inspection and full ROM Neuro: COMMON NORMALS: patient oriented x3, moves all extremities and no focal motor deficits Psych: COMMON NORMALS: mental status grossly normal, Normal thought process present and cooperative THOUGHT PROCESS: Normal thought process present Skin: COMMON NORMALS: no rashes or lesions noted and no wounds GENERAL SKIN EXAM: no rashes or lesions noted Course Vital Signs: Vital signs: Vital Signs Temperature 98.3 F 01/03/25 14:24 Pulse Rate 154 H 01/03/25 14:24 Respiratory Rate 18 01/03/25 14:24 Blood Pressure 131/89 01/03/25 14:24 Pulse Oximetry 98 01/03/25 14:24 Oxygen Delivery Me thod Room Air 01/03/25 14:24 MDM - Arrhythmia/Palpitations Medical Decision Making Patient presents with A-fib and RVR patient is now in the 60s after Cardizem push she has been well-appearing here blood works normal no chest pain or shortness of breath he stable for discharge 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 Medical Records I reviewed the patient's medical records. Lab Data I reviewed the patient's lab results. 01/03/25 14:40 01/03/25 14:40 Laboratory Results WBC 8.98 10^3/uL (3.29-11.43) 01/03/25 14:40 RBC 5.92 10^6/uL (3.85-5.65) H 01/03/25 14:40 Hgb 18.50 g/dL (11.27-16.99) H 01/03/25 14:40 Hct 53.5 % (37-53) H 01/03/25 14:40 MCV 90.4 fl (82-101) 01/03/25 14:40 MCH 31.3 pg (27-33) 01/03/25 14:40 MCHC 34.6 g/dL (30-55) 01/03/25 14:40 RDW 11.9 % (12.1-15.1) L 01/03/25 14:40 Plt Count 194 10^3/cmm (157-399) 01/03/25 14:40 MPV 10.4 fL (7.4-10.4) 01/03/25 14:40 Neut % (Auto) 64.5 % 01/03/25 14:40 Lymph % (Auto) 21.5 % 01/03/25 14:40 [place] % (Auto) 8.4 % 01/03/25 14:40 Eos % (Auto) 3.3 % 01/03/25 14:40 Baso % (Auto) 0.6 % 01/03/25 14:40 Neut # (Auto) 5.80 10^3/uL (1.8-7.7) 01/03/25 14:40 Lymph # (Auto) 1.9 10^3/uL (0.8-4.8) 01/03/25 14:40 [place] # (Auto) 0.8 10^3/uL (0.2-0.9) 01/03/25 14:40 Eos # (Auto) 0.3 10^3/uL (0.0-0.8) 01/03/25 14:40 Baso # (Auto) 0.1 10^3/uL (0.0-0.1) 01/03/25 14:40 Nucleated RBC % (auto) 0 % 01/03/25 14:40 Nucleated RBCs # 0.0 /100WBC 01/03/25 14:40 PT 15.60 SECONDS (12.1-14.9) H 01/03/25 14:40 INR 1.16 (0.8-1.2) 01/03/25 14:40 Sodium 134 mmol/L (136-145) L 01/03/25 14:40 Potassium 4.2 mmol/L (3.5-5.1) 01/03/25 14:40 Chloride 98 mmol/L (98-107) 01/03/25 14:40 Carbon Dioxide 26 mmol/L (22-29) 01/03/25 14:40 Anion Gap 14.2 (5-19) 01/03/25 14:40 BUN 20 mg/dL (8-23) 01/03/25 14:40 Creatinine 1.5 mg/dL (0.7-1.2) H 01/03/25 14:40 GFR Calculation Not Reportable 01/03/25 14:40 Glucose 141 mg/dL (65-115) H 01/03/25 14:40 Calculated Osmolality 283 mOsm/kg (285-295) L 01/03/25 14:40 Calcium 9.0 mg/dL (8.5-10.5) 01/03/25 14:40 Magnesium 2.4 mg/dL (1.7-2.3) H 01/03/25 14:40 Total Bilirubin 1.1 mg/dL (0.15-1.2) 01/03/25 14:40 AST 15 U/L (0-40) 01/03/25 14:40 ALT 18 U/L (0-41) 01/03/25 14:40 Alkaline Phosphatase 85 U/L (40-130) 01/03/25 14:40 Total Protein 7.3 g/dL (6.6-8.7) 01/03/25 14:40 Albumin 4.3 g/dL (3.5-5.2) 01/03/25 14:40 Globulin 3.0 g/dL (1.3-4.6) 01/03/25 14:40 All radiology interpretation(s) finalized by discharge EKG Data EKG 1: I personally reviewed and interpreted this EKG as follows: EKG interpretation date: 01/03/25 EKG interpretation time: 14:30 Interpretation: atrial flutter hr [address] elevation qrs 127 qtc 347 Discharge Plan Discharge Patient Disposition: Home Clinical Impression: Atrial fibrillation Condition: Stable Prescriptions: No Action lisinopril 20 mg tablet 20 mg PO BID mirtazapine 15 mg tablet 15 mg PO QPM pravastatin 20 mg tablet 20 mg PO QPM levothyroxine [Synthroid] 50 mcg tablet 50 mcg PO QAM amlodipine 5 mg tablet 5 mg PO DAILY Qty: 90 3RF Eliquis 5 mg tablet 5 mg PO BID Qty: 180 3RF metoprolol tartrate 25 mg tablet 25 mg PO BID tamsulosin 0.4 mg capsule 0.4 mg PO QPM Rx Instructions: TAKE 1 CAPSULE BY MOUTH EVERY EVENING. Discharge Orders: Discharge ED (Routine); Ordered 01/03/25 Ordered By: Damir Bustamante Referrals: Lauryn Sheriff MD [Primary Care Provider] - Ray Vazquez MD [Physician] - 4-7 days Discharge Diet: Advance as tolerated Discharge Activity: Resume usual activity Patient Instructions: A-fib (Atrial Fibrillation) (ED) Print Language: Serbian Coding Level of Care Code ED Service Observer Chief for Woo Bonner
[2025-01-03 14:52] LABS: Basophils # 0.1 10^3/uL (0.0-0.1); Basophils % 0.6 %; Eosinophils # 0.3 10^3/uL (0.0-0.8); Eosinophils % 3.3 %; Hematocrit 53.5 % (37-53); Lymphocytes # 1.9 10^3/uL (0.8-4.8); Lymphocytes % 21.5 %; Mean Corpuscular HGB Conc 34.6 g/dL (30-55); Mean Corpuscular Hemoglobin 31.3 pg (27-33); Mean Corpuscular Volume 90.4 fl (82-101); Mean Platelet Volume 10.4 fL (7.4-10.4); Monocytes # 0.8 10^3/uL (0.2-0.9); Monocytes % 8.4 %; Neutrophils % 64.5 %; Nucleated Red Blood Cells % 0 %; Platelet Count 194 10^3/cmm (157-399); Red Blood Count 5.92 10^6/uL (3.85-5.65); Red Cell Distribution Width 11.9 % (12.1-15.1); White Blood Count 8.98 10^3/uL (3.29-11.43)
[2025-01-03 15:04] LABS: INR 1.16 (0.8-1.2)
[2025-01-03 15:08] LABS: Alanine Aminotransferase 18 U/L (0-41); Albumin Level 4.3 g/dL (3.5-5.2); Alkaline Phosphatase 85 U/L (40-130); Anion Gap 14.2 (5-19); Aspartate Amino Transferase 15 U/L (0-40); Blood Urea Nitrogen 20 mg/dL (8-23); Carbon Dioxide 26 mmol/L (22-29); Chloride 98 mmol/L (98-107); Creatinine Clr Calc Pharmacy 36.2966; Glucose 141 mg/dL (65-115); Magnesium 2.4 mg/dL (1.7-2.3); Osmolality Calculated 283 mOsm/kg (285-295); Potassium 4.2 mmol/L (3.5-5.1); Sodium 134 mmol/L (136-145); Total Bilirubin 1.1 mg/dL (0.15-1.2); Total Protein 7.3 g/dL (6.6-8.7)
== END 2025-01-03 15:30 | disposition home or self-care (01) ==
PROVIDERS: Emergency Provider Emergency Medicine; PCP Internal Medicine
DX: I48.91 Unspecified atrial fibrillation (principal); Z79.01 Long term (current) use of anticoagulants; Z87.891 Personal history of nicotine dependence; E78.5 Hyperlipidemia, unspecified
CPT/HCPCS: 71045; 80053; 83735; 85025; 85610; 93005; 96361; 96374; 99285; J3490; J7030

== ENCOUNTER → 2025-01-21 14:02 | Outpatient (BNVA) | payer MEDICARE, SELFPAY | PROVIDERS: PCP Internal Medicine; Visit Provider Nurse Practitioner Family | DX: I48.20 Chronic atrial fibrillation, unspecified (principal); Z79.01 Long term (current) use of anticoagulants; I10 Essential (primary) hypertension; Z87.891 Personal history of nicotine dependence | CPT/HCPCS: 99214 ==

== ENCOUNTER 2025-08-12 17:19 | Emergency (ER) | payer MEDICARE, SELFPAY ==
[2025-08-12 17:22] VITALS: BP 182/78; PULSE 83; RESP 18; TEMP 36.9; O2SAT 99
--- OUTSIDE RECORDS SUMMARY | 2025-08-12 17:25 | XMS_ITS | Clinical Summary ---
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 2 Active pravastatin (PRAVACHOL) 20 mg tablet Take 20 mg by mouth late in the day. 2 Active mirtazapine (REMERON) 15 mg tablet Take 15 mg by mouth daily at bedtime. 2 Active levothyroxine 50 mcg tablet Take 50 mcg by mouth daily. 2 Active lisinopriL (PRINIVIL) 20 mg tablet Take 20 mg by mouth daily. 2 Active flecainide (TAMBOCOR) 50 mg Tablet 2 Active metoprolol tartrate (LOPRESSOR) 25 mg tablet 2 Active prednisolone-mo xiflox-bromfen 1-0.5-0.075 % Drops, Suspension 1 Drop by Ophthalmic route 3 times daily. 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 Gender Identity Not on file Sexual Orientation Not on file Last Filed Vital Signs Vital Sign Reading Time Taken Comments Blood Pressure 140/83 12/19/2022 2:23 PM EXTRUSION TECHNICIAN Pulse 80 12/19/2022 2:23 PM EXTRUSION TECHNICIAN Temperature 36.7 C (98.1 F) 12/19/2022 2:23 PM EXTRUSION TECHNICIAN Respiratory Rate 16 12/19/2022 12:49 PM EXTRUSION TECHNICIAN Oxygen Saturation 100% 12/19/2022 2:23 PM EXTRUSION TECHNICIAN Inhaled Oxygen Concentration - - Weight 60.8 kg (134 lb) 12/19/2022 12:49 PM EXTRUSION TECHNICIAN Height 172.7 cm (5' 8 ) 12/18/2022 3:16 PM EXTRUSION TECHNICIAN Body Mass Index 20.37 12/18/2022 3:16 PM EXTRUSION TECHNICIAN Plan of Treatment Health Maintenance Due Date Last Done Comments PNEUMOCOCCAL VACCINE 50+ YEA RS (1 of 1 - PCV) 1993 ZOSTER VACCINE (1 of 2) 1993 DTAP/TDAP/TD VACCINES (1 - Tdap) 03/23/2007 03/22/20 07 RSV VACCINE (60+ or ) (1 - 1-dose 75+ series) 2018 INFLUENZA VACCINE (#1) 2025 COVID-19 Vaccine (2024- season) 2025 12/28/2021, 02/25/2021, 01/12/2021 Medical Devices Implanted Type Area Pnp Device Identifier Shelf Expiration Date Model / Serial / Lot Ring Tension Capsular Type 14c [id number] - [id number] Implanted:Qty: 1 on 12/19/2022 by Louis Bucio MD at [facility] Left: Eye [employer] 04/13/2027 [id number] / [id number] / [id number] Lens Iol Tecnis Eyhance 23.0 [id number] - [id number] Implanted:Qty: 1 on 12/19/2022 by Louis Bucio MD at [facility] Left: Eye [employer] 08/27/2025 [id number] / [id number] / NA Insurance [facility]
--- NOTE | 2025-08-12 17:26 | ECG_ITS ---
[facility]: 2025-08-12 Pat Name: Frantz Bearden Department: Room: Gender: Male Administrative Liaison: : 1945 Requested By: Liana Murrell Order Number: [id number] Reading MD: CED PATTEN Measurements Intervals [place] Rate: 78 P: 42 IA: 147 QRS: 41 QRSD: 76 T: 50 QT: 374 QTc: 427 Interpretive Statements SINUS RHYTHM WITH OCCASIONAL VENTRICULAR PREMATURE COMPLEXES WITH OCCASIONAL SUPRAVENTRICULAR PREMATURE COMPLEXES POSSIBLE LEFT ATRIAL ENLARGEMENT [-0.1mV P-WAVE IN V1/V2] MODERATE ST DEPRESSION [0.05+ mV ST DEPRESSION] Compared to ECG 01/03/2025 14:53:37 Ventricular premature complex(es) now present ST (T wave) deviation now present Atrial fibrillation no longer present T-wave abnormality no longer present Possible ischemia no longer present Electronically Signed On 08-15-2025 21:16:50 CDT by CED PATTEN [email or web address]
--- NOTE | 2025-08-12 17:33 | XRR_ITS ---
PROCEDURE INFORMATION: Exam: XR Chest Exam date and time: 08/12/2025 5:40 PM Age: 80 years old Clinical indication: Other: Palpitations TECHNIQUE: Imaging protocol: Radiologic exam of the chest. Views: 1 view. COMPARISON: CR XR chest 1V portable [id number] 01/03/2025 2:39 PM FINDINGS: Lungs: Few scattered granulomas. Pleural spaces: Unremarkable. No pleural effusion. No pneumothorax. Heart/Mediastinum: Unremarkable. No cardiomegaly. Vasculature: Aortic atherosclerosis. Bones/joints: Unremarkable. XR/XR chest 1V portable [id number] IMPRESSION: No definite acute infiltrate or effusion.
--- NOTE | 2025-08-12 17:51 | W.ED.ARRPALP ---
HPI - Arrhythmia/Palpitations General: Chief Complaint: Arrhythmia/Palpitations Stated Complaint: Pt states Heart is skipping Time Seen by Provider: 08/12/25 17:40 History of Present Illness: Patient is 80-year-old gentleman with history of A-fib, on Eliquis, metoprolol tartrate, HTN, presents to the emergency room with a regular heartbeat. He noted this the other day and called for a cardiology appointment, and was given 1 in September. This started this a.m. again. This is gone at time of arrival. Denies any chest pain or shortness of breath. Associated symptoms: Deny anxiety, nausea or vomiting Related Data Home Medications ?Medication ?Instructions ?Recorded ?Confirmed levothyroxine 50 mcg tablet 50 mcg PO QAM 10/30/19 01/21/25 (Synthroid) lisinopril 20 mg tablet 20 mg PO BID 10/30/19 01/21/25 mirtazapine 15 mg tablet 15 mg PO QPM 10/30/19 01/21/25 pravastatin 20 mg tablet 20 mg PO QPM 10/30/19 01/21/25 metoprolol tartrate 25 mg tablet 25 mg PO BID 04/29/24 01/21/25 tamsulosin 0.4 mg capsule 0.4 mg PO QPM 01/03/25 01/21/25 Previous Rx's ?Medication ?Instructions ?Recorded apixaban 5 mg tablet (Eliquis) 5 mg PO BID #180 tabs 07/10/23 amlodipine 5 mg tablet 5 mg PO DAILY #90 tabs 05/18/25 Allergies Allergy/AdvReac Type Severity Reaction Status Date / Time azithromycin Allergy Unknown Verified 01/21/25 14:18 erythromycin base Allergy Unknown Verified 01/21/25 14:18 Review of Systems General: Reports: 10 or more systems reviewed and unremarkable except in HPI and below Const: Denies: fever(s) or chills Eyes: Denies: change in vision or blurry vision ENMT: Denies: throat pain or odynophagia Card: Reports: palpitations and irregular heart rhythm; Denies: chest pain Resp: Denies: dyspnea or non-productive cough GI: Denies: abdominal pain, nausea or vomiting : Denies: flank pain or difficulty urinating Musc: Denies: neck pain or back pain Skin/Breast: Denies: rash or pruritus Neuro: Denies: headache(s) or numbness in extremities Psych: Denies: anxiety or depression PFSH ED PFSH: Medical History (Updated 08/12/25 @ 19:38 by ANGELA Bunch) Anticoagulation adequate with anticoagulant therapy Prostatitis BPH loc w urin obs/LUTS Elevated PSA Gross hematuria Hyperlipidemia BPH (benign prostatic hyperplasia) Basal cell carcinoma Atrial flutter Hypothyroidism Calculus of kidney Hypertension Surgical History H/O: knee surgery LEFT History of cholecystectomy H/O parathyroidectomy Family History Father , AT AGE 79 FH: CABG (coronary artery bypass surgery) Brother FH: CABG (coronary artery bypass surgery) Mother , AT AGE 96 No problems noted. Other CAD (coronary artery disease) Valvular heart disease Social History Smoking and tobacco/nicotine status: former use of tobacco/nicotine Alcohol intake: never Substance/Drug Use: never Marital status: Current occupational status: retired Physical Exam Const: COMMON NORMALS: no acute distress, average body habitus, patient oriented x3, no limitations, healthy appearing, alert and well nourished GENERAL APPEARANCE: cooperative HENMT: COMMON NORMALS: normocephalic and atraumatic HEAD & SCALP: normocephalic and atraumatic Chest: COMMONS NORMALS: normal inspection of the chest and normal palpation of entire chest wall Resp: COMMON NORMALS: normal respiratory effort, No retractions and clear to auscultation bilaterally EFFORT & INSPECTION: Yes able to speak in complete sentences AUSCULTATION: clear to auscultation bilaterally Cardio: COMMON NORMALS: regular rate and regular rhythm RATE: regular rate RHYTHM: regular rhythm GI: COMMON NORMALS: Normal to inspection, nondistended, normoactive bowel sounds present, Soft to palpation, non-tender and No hepatosplenomegaly present PALPATION: Yes Soft to palpation and Yes No hepatosplenomegaly present : COMMON NORMALS: Yes no CVA tenderness BLADDER/KIDNEY EXAM: Yes no CVA tenderness Back/Pelvis: COMMON NORMALS: no CVA tenderness Extremity: COMMON NORMALS: normal to inspection, full ROM and capillary refill normal Neuro: COMMON NORMALS: patient oriented x3, CN's II-XII intact bilaterally and moves all extremities SENSORIUM/ORIENTATION: Yes alert Psych: COMMON NORMALS: mental status grossly normal, Normal thought process present and cooperative THOUGHT PROCESS: Normal thought process present Course Vital Signs: Vital signs: Vital Signs Temperature 98.5 F 08/12/25 17:22 Pulse Rate 85 08/12/25 18:33 Respiratory Rate 16 08/12/25 18:33 Blood Pressure 170/101 08/12/25 18:33 Pulse Oximetry 98 08/12/25 18:33 Oxygen Delivery Me thod Room Air 08/12/25 17:52 MDM - Arrhythmia/Palpitations Medical Decision Making Patient is a 1-year-old gentleman that presents today with a regular heart rate. He is chronically on metoprolol, and Eliquis. There has not been any identified on the monitor so far during his stay. On exam, he is regular. Will check routine labs, baseline troponin, magnesium, TSH, and see if case management can refer for monitoring. Initial workup is negative. He does have concentrated hemoglobin/hematocrit, however chronically is on Eliquis for coagulopathy. I would also consider secondary hypoxia, versus hypovolemia/associated secondary polycythemia vera. He is not on a diuretic. Will order a 4-day Holter monitor, and refer to cardiology for follow-up. Medical Records I reviewed the patient's medical records. Lab Data I reviewed the patient's lab results. 08/12/25 18:05 08/12/25 18:05 Radiology Impressions Chest X-Ray 08/12/25 17:33 IMPRESSION: No definite acute infiltrate or effusion. Laboratory Results WBC 9.37 10^3/uL (3.29-11.43) 08/12/25 18:05 RBC 5.73 10^6/uL (3.85-5.65) H 08/12/25 18:05 Hgb 17.50 g/dL (11.27-16.99) H 08/12/25 18:05 Hct 51.6 % (37-53) 08/12/25 18:05 MCV 90.1 fl (82-101) 08/12/25 18:05 MCH 30.5 pg (27-33) 08/12/25 18:05 MCHC 33.9 g/dL (30-55) 08/12/25 18:05 RDW 12.6 % (12.1-15.1) 08/12/25 18:05 Plt Count 165 10^3/cmm (157-399) 08/12/25 18:05 MPV 10.6 fL (7.4-10.4) H 08/12/25 18:05 Neut % (Auto) 61.4 % 08/12/25 18:05 Lymph % (Auto) 25.3 % 08/12/25 18:05 [place] % (Auto) 7.3 % 08/12/25 18:05 Eos % (Auto) 3.1 % 08/12/25 18:05 Baso % (Auto) 0.6 % 08/12/25 18:05 Neut # (Auto) 5.75 10^3/uL (1.8-7.7) 08/12/25 18:05 Lymph # (Auto) 2.4 10^3/uL (0.8-4.8) 08/12/25 18:05 [place] # (Auto) 0.7 10^3/uL (0.2-0.9) 08/12/25 18:05 Eos # (Auto) 0.3 10^3/uL (0.0-0.8) 08/12/25 18:05 Baso # (Auto) 0.1 10^3/uL (0.0-0.1) 08/12/25 18:05 Nucleated RBC % (auto) 0 % 08/12/25 18:05 Nucleated RBCs # 0.0 /100WBC 08/12/25 18:05 Sodium 135 mmol/L (136-145) L 08/12/25 18:05 Potassium 4.3 mmol/L (3.5-5.1) 08/12/25 18:05 Chloride 99 mmol/L (98-107) 08/12/25 18:05 Carbon Dioxide 23 mmol/L (22-29) 08/12/25 18:05 Anion Gap 17.3 (5-19) 08/12/25 18:05 BUN 28 mg/dL (8-23) H 08/12/25 18:05 Creatinine 1.4 mg/dL (0.7-1.2) H 08/12/25 18:05 GFR Calculation Not Reportable 08/12/25 18:05 Glucose 109 mg/dL (65-115) 08/12/25 18:05 Calculated Osmolality 286 mOsm/kg (285-295) 08/12/25 18:05 Calcium 8.8 mg/dL (8.5-10.5) 08/12/25 18:05 Magnesium 2.4 mg/dL (1.7-2.3) H 08/12/25 18:05 Total Bilirubin 1.0 mg/dL (0.15-1.2) 08/12/25 18:05 AST 13 U/L (0-40) 08/12/25 18:05 ALT 21 U/L (0-41) 08/12/25 18:05 Alkaline Phosphatase 92 U/L (40-130) 08/12/25 18:05 Troponin T Baseline 17 ng/L (0-15) H 08/12/25 18:05 NT-Pro-B Natriuret Pep 229 pg/mL (0-450) 08/12/25 18:05 Total Protein 6.5 g/dL (6.6-8.7) L 08/12/25 18:05 Albumin 4.3 g/dL (3.5-5.2) 08/12/25 18:05 Globulin 2.2 g/dL (1.3-4.6) 08/12/25 18:05 TSH 4.13 uIU/mL (0.27-4.20) 08/12/25 18:05 Urine Color Yellow (Yellow) 08/12/25 18: Urine Appearance Clear (CLEAR) 08/12/25 18: Urine pH 5.0 (5-7) 08/12/25 18: Ur Specific [place] 1.019 (1.005-1.030) 08/12/25 18: Urine Protein Negative (Negative) 08/12/25 18: Urine Glucose (UA) Negative (Normal) 08/12/25 18: Urine Ketones Negative (Negative) 08/12/25 18: Urine Blood Trace (Negative) A 08/12/25 18: Urine Nitrate Negative (Negative) 08/12/25 18: Urine Bilirubin Negative (Negative) 08/12/25 18: Urine Urobilinogen 0.2 mg/dL (Negative) 08/12/25 18:30 Ur Leukocyte Esterase Negative (Negative) 08/12/25 18:30 Urine RBC 0-2 /hpf (0-2) 08/12/25 18:30 Urine WBC 0-5 /hpf (0-5) 08/12/25 18:30 Ur Squamous Epith Cells 0-5 /hpf (0-5) 08/12/25 18:30 Amorphous Sediment Not Reportable 08/12/25 18:30 Urine Bacteria None seen /hpf (NONE) 08/12/25 18:30 Hyaline Casts 0.81 /lpf 08/12/25 18:30 Urine Opiates Screen Negative ng/mL (Negative) 08/12/25 18:30 Ur Barbiturates Screen Negative ng/mL (Negative) 08/12/25 18:30 Ur Phencyclidine Scrn Negative ng/mL (Negative) 08/12/25 18:30 Ur Amphetamines Screen Negative ng/mL (Negative) 08/12/25 18:30 U Benzodiazepines Scrn Negative ng/mL (Negative) 08/12/25 18:30 Urine Cocaine Screen Negative ng/mL (Negative) 08/12/25 18:30 U Marijuana (THC) Screen Negative ng/mL (Negative) 08/12/25 18:30 All radiology interpretation(s) finalized by discharge Discharge Plan Discharge Patient Disposition: Home Clinical Impression: Palpitations Condition: Stable Prescriptions: No Action lisinopril 20 mg tablet 20 mg PO BID mirtazapine 15 mg tablet 15 mg PO QPM pravastatin 20 mg tablet 20 mg PO QPM levothyroxine [Synthroid] 50 mcg tablet 50 mcg PO QAM Eliquis 5 mg tablet 5 mg PO BID Qty: 180 3RF amlodipine 5 mg tablet 5 mg PO DAILY Qty: 90 3RF metoprolol tartrate 25 mg tablet 25 mg PO BID tamsulosin 0.4 mg capsule 0.4 mg PO QPM Rx Instructions: TAKE 1 CAPSULE BY MOUTH EVERY EVENING. Discharge Orders: Discharge ED (Routine); Ordered 08/12/25 Ordered By: Liana Murrell Referrals: Lauryn Sheriff MD [Primary Care Provider, Internal Medicine] Discharge Diet: Usual diet Discharge Activity: Resume usual activity Patient Instructions: Heart Palpitations (ED), Patient Portal & Kandi Instructions Activity Restrictions/Additional Instructions: - Make sure you drink plenty of noncaffeinated beverages.. - You need to have your blood counts redrawn by your primary because your hemoglobin is thick. Your primary doctor may want to work you up for low oxygen at night, or dehydration. You did not indicate that you have been ill or throwing up. -Follow-up with cardiology regarding your monitor. An order from case management has been placed and they will call you. - Return to ED with worsening symptoms. Thank you for choosing [facility] for your healthcare needs today. You have been screened and evaluated and felt safe for discharge. Health conditions do change or evolve sometimes and as such it is important that you follow up with your Primary Doctor to be re checked, 3-5 days is a general good time frame for follow up. You are always welcome to return to the ED for re assessment if your symptoms are worsening or you have new concerns Print Language: Egyptian Coding Level of Care Code ED Call Center Professional for Woo Bonner
[2025-08-12 17:52] VITALS: BP 164/91; PULSE 78; RESP 22; O2SAT 99
[2025-08-12 18:06] VITALS: BP 160/89; PULSE 78; RESP 18; O2SAT 98
[2025-08-12 18:21] LABS: Hematocrit 51.6 % (37-53); Hemoglobin 17.50 g/dL (11.27-16.99); Mean Corpuscular HGB Conc 33.9 g/dL (30-55); Mean Corpuscular Hemoglobin 30.5 pg (27-33); Mean Corpuscular Volume 90.1 fl (82-101); Nucleated Red Blood Cells % 0 %; Platelet Count 165 10^3/cmm (157-399); Red Blood Count 5.73 10^6/uL (3.85-5.65); White Blood Count 9.37 10^3/uL (3.29-11.43)
[2025-08-12 18:33] VITALS: BP 170/101; PULSE 85; RESP 16; O2SAT 98
[2025-08-12 18:51] LABS: Glucose Urine UA Negative (Normal); Nitrate Urine Negative (Negative); Specific Gravity, Urine 1.019 (1.005-1.030)
[2025-08-12 18:56] LABS: Add Urine Microscopic? YES
[2025-08-12 18:58] LABS: PCP Screen Urine Negative (Negative)
[2025-08-12 19:02] LABS: Troponin(5th) Baseline 17 ng/L (0-15)
[2025-08-12 19:11] LABS: Alanine Aminotransferase 21 U/L (0-41); Albumin Level 4.3 g/dL (3.5-5.2); Alkaline Phosphatase 92 U/L (40-130); Anion Gap 17.3 (5-19); Aspartate Amino Transferase 13 U/L (0-40); Blood Urea Nitrogen 28 mg/dL (8-23); Calcium 8.8 mg/dL (8.5-10.5); Carbon Dioxide 23 mmol/L (22-29); Chloride 99 mmol/L (98-107); Creatinine Clr Calc Pharmacy 38.3345; Globulin 2.2 g/dL (1.3-4.6); Glucose 109 mg/dL (65-115); Magnesium 2.4 mg/dL (1.7-2.3); NT Pro B Type Natriuretic Pept 229 pg/mL (0-450); Osmolality Calculated 286 mOsm/kg (285-295); Potassium 4.3 mmol/L (3.5-5.1); Sodium 135 mmol/L (136-145); Thyroid Stimulating Hormone 4.13 uIU/mL (0.27-4.20); Total Protein 6.5 g/dL (6.6-8.7)
[2025-08-12 19:58] VITALS: BP 163/83; PULSE 97; RESP 16; O2SAT 94
--- NOTE | 2025-08-14 08:53 | DCPLANNER ---
messaged heart care for er f/u
== END 2025-08-12 19:59 | disposition home or self-care (01) ==
PROVIDERS: Emergency Provider Physician Assistant; PCP Internal Medicine
DX: R00.2 Palpitations (principal); Z79.01 Long term (current) use of anticoagulants; Z87.891 Personal history of nicotine dependence; E78.5 Hyperlipidemia, unspecified; I10 Essential (primary) hypertension; Z85.828 Personal history of other malignant neoplasm of skin
CPT/HCPCS: 36415; 71045; 80053; 80306; 81001; 83735; 83880; 84443; 84484; 85025; 93005; 99285

== ENCOUNTER → 2025-09-22 08:44 | Outpatient (BNVA) | payer MEDICARE, SELFPAY | PROVIDERS: PCP Internal Medicine; Visit Provider Nurse Practitioner Family | DX: I47.10 Supraventricular tachycardia, unspecified (principal); I10 Essential (primary) hypertension; I48.92 Unspecified atrial flutter; E78.5 Hyperlipidemia, unspecified; Z79.01 Long term (current) use of anticoagulants | CPT/HCPCS: 99214 ==